=== PATIENT | male | born 1965 | race Caucasian/White ===

== ENCOUNTER 2018-09-30 10:43 | Emergency (ER) | payer OTHER ==
[~2018-09-30] VITALS: Ht 177.8 cm; Wt 106.6 kg
[2018-09-30] MEDS ORDERED: ULTRAM50 MG PO (13:30)
== END 2018-09-30 14:00 | disposition home or self-care (01) ==
LOC: ED 10:43
DX: M54.5 Low back pain (principal); I10 Essential (primary) hypertension; Z88.0 Allergy status to penicillin; Z88.2 Allergy status to sulfonamides
CPT/HCPCS: 81001; 96372; 99283-25; J1885

== ENCOUNTER 2019-09-21 07:46 | Emergency (ER) | payer OTHER ==
[~2019-09-21] VITALS: Ht 177.8 cm; Wt 106.6 kg
[~2019-09-21 07:46] MED LIST: ULTRAM50 MG PO
[2019-09-21] MEDS ORDERED: LISINOPRIL10 MG PO (09:03)
== END 2019-09-21 09:17 | disposition home or self-care (01) ==
LOC: ED 07:46
DX: I10 Essential (primary) hypertension (principal); F22 Delusional disorders; Z88.0 Allergy status to penicillin; Z88.2 Allergy status to sulfonamides
CPT/HCPCS: 99284

== ENCOUNTER 2019-09-25 16:57 | Emergency (ER) | payer OTHER ==
[~2019-09-25] VITALS: Ht 177.8 cm; Wt 114.8 kg
[~2019-09-25 16:57] MED LIST changes: +LISINOPRIL10 MG PO
--- OUTSIDE RECORDS SUMMARY | 2019-09-25 17:00 | XMS ---
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 Care History Behavioral 05/17/2018 [facility] Currently engaging in mental health services with [facility].\T\ nbsp; Please contact [employer] for any mental health concerns. [phone] Medical/Surgical 09/25/[address] [facility] - CHW CALLED AND LEFT PATIENT A VOICEMAIL AGAIN- WITH CONTACT FOR RETURN CALL. 09/24/[address] [facility] - CHW CALLED PATIENT 2X- UNABLE TO CONTACT PATIENT- LEFT A VOICEMAIL- HAS NOT RETURNED CALL. - CHW SENT NO PCP LETTER. E.D. VISIT COUNT (12 MO.) 1 [place] [facility] TOTAL 5 NOTE: Visits indicate total known visits. ED/UCC VISIT TRACKING (12 MO.) 09/25/2019 16:57 [facility] [place] TYPE: Emergency COMPLAINT: - SLEEPLESSNESS 09/24/2019 17:16 [facility] [place] TYPE: Emergency COMPLAINT: - SORE THROAT 09/21/2019 07:46 [facility] [place] TYPE: Emergency COMPLAINT: - WEAKNESS DIAGNOSES: - Allergy status to sulfonamides status - Allergy status to penicillin - Delusional disorders - Essential (primary) hypertension - Weakness 01/22/2019 09:46 [facility] [place] TYPE: Emergency DIAGNOSES: - Med Refill - Essential (primary) hypertension - BP 09/30/2018 10:[address] [facility] [address] [facility] Z[facility] [place] TYPE: Emergency COMPLAINT: - BACK PAIN/NO INJURY DIAGNOSES: - Essential (primary) hypertension - Allergy status to penicillin - Low back pain - Allergy status to sulfonamides status INPATIENT VISIT TRACKING (12 MO.) No inpatient visits to display in this time frame [email or web address]
[2019-09-25] MEDS ORDERED: PRINIVIL10 MG PO (17:20)
== END 2019-09-25 18:20 | disposition home or self-care (01) ==
LOC: ED 16:57
DX: F19.982 Other psychoactive substance use, unspecified with psychoactive substance-induced sleep disorder (principal); I10 Essential (primary) hypertension; Z88.0 Allergy status to penicillin; Z88.2 Allergy status to sulfonamides; Z79.899 Other long term (current) drug therapy
CPT/HCPCS: 99283

== ENCOUNTER 2019-09-26 23:14 | Emergency (ER) | payer OTHER ==
[~2019-09-26] VITALS: Ht 177.8 cm; Wt 114.8 kg
[~2019-09-26 23:14] MED LIST changes: +PRINIVIL10 MG PO
--- OUTSIDE RECORDS SUMMARY | 2019-09-26 23:16 | XMS ---
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 Care History [facility] Currently engaging in mental health services with [employer].\T\ nbsp; Please contact [employer] for any mental health concerns. [phone] Medical/Surgical 09/26/2019 [facility] - CHW CONTACTED PATIENT- DISCUSSED THE NEED FOR ESTABLISHING CARE WITH A PCP. - PATIENT APPROVED FOR CHW TO CONTACT [facility] TO SET UP AN APT- CHW CONTACTED CLINIC AND SET UP A PCP APT FOR Tuesday10/01/2019 @ 12: 45. - CHW PROVIDED PATIENT WITH TRANSPORTATION NUMBER WITH MEDICAID- PATIENT STATED HE WOULD CALL IF TRANSPORTATION SERVICES WAS NEEDED. 09/25/2019 [facility] - CHW CALLED AND LEFT PATIENT A VOICEMAIL AGAIN- WITH CONTACT FOR RETURN CALL. 09/24/2019 [facility] - W CALLED PATIENT 2X- UNABLE TO CONTACT PATIENT- LEFT A VOICEMAIL- HAS NOT RETURNED CALL. - CHW SENT NO PCP LETTER. E.D. VISIT COUNT (12 MO.) 1 [facility] [place] - [place] 5 [facility]. TOTAL 6 NOTE: Visits indicate total known visits. ED/UCC VISIT TRACKING (12 MO.) 09/26/2019 23:14 [facility] [place] TYPE: Emergency COMPLAINT: - KIDNEY PAIN 09/25/2019 16:57 [facility] [place] TYPE: Emergency COMPLAINT: - SLEEPLESSNESS 09/24/2019 17:16 [facility] [place] TYPE: Emergency COMPLAINT: - SORE THROAT 09/21/2019 07:46 [facility] [place] TYPE: Emergency COMPLAINT: - WEAKNESS DIAGNOSES: - Allergy status to sulfonamides status - Allergy status to penicillin - Delusional disorders - Essential (primary) hypertension - Weakness 01/22/2019 09:46 [facility] [place] TYPE: Emergency DIAGNOSES: - Med Refill - Essential (primary) hypertension - BP 09/30/2018 10:44 [facility] [place] TYPE: Emergency COMPLAINT: - BACK PAIN/NO INJURY DIAGNOSES: - Essential (primary) hypertension - Allergy status to penicillin - Low back pain - Allergy status to sulfonamides status INPATIENT VISIT TRACKING (12 MO.) No inpatient visits to display in this time frame [email or web address]
== END 2019-09-27 01:31 | disposition home or self-care (01) ==
LOC: ED 23:14
DX: R10.9 Unspecified abdominal pain (principal); I10 Essential (primary) hypertension; Z88.0 Allergy status to penicillin; Z88.2 Allergy status to sulfonamides; Z79.899 Other long term (current) drug therapy
CPT/HCPCS: 74176; 81001; 99284-25

== ENCOUNTER 2019-09-28 09:36 | Emergency (ER) | payer OTHER ==
[~2019-09-28] VITALS: Ht 177.8 cm; Wt 114.8 kg
--- OUTSIDE RECORDS SUMMARY | 2019-09-28 09:38 | XMS ---
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 Care History [facility] Magui [facility] Currently engaging in mental health services with [facility].\T\ nbsp; Please contact [employer] for any mental health concerns. [phone] Medical/Surgical 09/27/2019 [facility] - W CONTACTED PATIENT- PATIENT REQUESTED INFORMATION FOR APT TO BE TEXTED TO HIS CELLPHONE. - CHW TEXT [phone] WITH APT TIME AND LOCATION AND TRANSPORTATION NUMBER. 09/26/2019 [facility] - W CONTACTED PATIENT- DISCUSSED THE NEED FOR ESTABLISHING CARE WITH A PCP. - PATIENT APPROVED FOR CHW TO CONTACT [facility] TO SET UP AN APT- CHW CONTACTED CLINIC AND SET UP A PCP APT FOR Tuesday10/01/2019 @ 12: 45. - CHW PROVIDED PATIENT WITH TRANSPORTATION NUMBER WITH MEDICAID- PATIENT STATED HE WOULD CALL IF TRANSPORTATION SERVICES WAS NEEDED. 09/25/2019 [facility] - CHW CALLED AND LEFT PATIENT A VOICEMAIL AGAIN- WITH CONTACT FOR RETURN CALL. E.D. VISIT COUNT (12 MO.) 1 [facility] - [place] 6 [facility] TOTAL 7 NOTE: Visits indicate total known visits. ED/UCC VISIT TRACKING (12 MO.) 09/28/2019 09:36 [facility] [place] TYPE: Emergency COMPLAINT: - MEDICAL CLEARANCE 09/26/2019 23:14 [facility] [place] TYPE: Emergency COMPLAINT: - KIDNEY PAIN 09/25/2019 16:57 [facility] [place] TYPE: Emergency COMPLAINT: - SLEEPLESSNESS DIAGNOSES: - Allergy status to sulfonamides status - Ot psychoactive substance use, unsp w sleep disorder - Essential (primary) hypertension - Ot psychoactive substance use, unsp w sleep disorder - Allergy status to penicillin - Other shelter (current) drug therapy 09/24/2019 17:16 [facility] [place] TYPE: Emergency COMPLAINT: - SORE THROAT DIAGNOSES: - Allergy status to sulfonamides status - Cough - Viral infection, unspecified - Essential (primary) hypertension - Allergy status to penicillin 09/21/2019 07:46 [facility] [place] TYPE: Emergency [...] visits to display in this time frame [email or web address]
--- NOTE | 2019-10-04 15:20 | NUR ---
Inidcated to care staff wanted someone to pray with him. Entered room and introduced myself, and inquired as to desire to pray. PT seemed confused and uncertain as to what I was referring to. Asked if Bible needed to be blessed before reading. I replied that I could bless it if he desired, but that it was not necessary. He declined further services or prayer.
== END 2019-10-05 13:00 | disposition home or self-care (01) ==
LOC: ED 09:36
DX: F29 Unspecified psychosis not due to a substance or known physiological condition (principal); I10 Essential (primary) hypertension; Z88.0 Allergy status to penicillin; Z88.2 Allergy status to sulfonamides; Z79.899 Other long term (current) drug therapy
CPT/HCPCS: 80053; 80176; 81001; 84443; 85025; 96360; 96361; 99283-25; 99285-25; G0480; J7030

== ENCOUNTER 2020-01-13 18:06 | Emergency (ER) | payer OTHER ==
[~2020-01-13] VITALS: Ht 177.8 cm; Wt 122.5 kg
--- OUTSIDE RECORDS SUMMARY | ~2020-01-13 | XMS | Encounter Summary ---
Demographics + + + | Address | [address] | | | [place] [address] | + + + | Home Phone | | + + + | Preferred Language | Unknown | + + + | Marital Status | Single | + + + | Christianity Affiliation | 1013 | + + + | Race | Unknown | + + + | Ethnic Group | Unknown | + + + Author + + + | Author | [facility] | | | and [place] | + + + | Organization | [facility] | | | and [place] | + + + | Address | Unknown | + + + | Phone | Unavailable | + + + Support + + +---------+ + | Name | Relationship | Address | Phone | + + +---------+ + | Kady Solre | ECON | Unknown | | + + +---------+ + Care Team Providers + +------+ + | Care Kiln Fireman Name | Role | Phone | + +------+ + PCP | Unavailable | + +------+ + Encounter Details +--------+ + + + + | Date | Type | Department | Care Team | Description | +--------+ + + + + | 01/07/ | Hospital | [facility] | Farrah Galaviz | | | 2011 | Encounter | [facility] | [address] | | | | | [address] | | | | | [place] | [place] [address] | | | | | [address] | [phone] | | | | | [phone] | | | +--------+ + + + + Social History + +-------+ +--------+------+ | Tobacco Use | Types | Packs/Day | Years | Date | | | | | Used | | + +-------+ +--------+------+ | Never Assessed | | | | | + +-------+ +--------+------+ + + + | Sex Assigned at | Date Recorded | | | | + + + | Not on file | | + + + + + + + | Job Start Date | Occupation | Industry | + + + + | Not on file | Not on file | Not on file | + + + + + + + + | Travel History | Travel Start | Travel End | + + + + + + | No recent travel history available. | + + documented as of this encounter Plan of Treatment +--------+---------+ + + + | Date | Type | Specialty | Care Team | Description | +--------+---------+ + + + | 05/29/ | Office | Cardiology | Blanca Keating, | | | 2020 | Visit | | [address] | | | | | | [place], | | | | | | [place] [address] | | | | | | [phone] | | | | | | | | +--------+---------+ + + + documented as of this encounter Visit Diagnoses Not on filedocumented in this encounter"
--- OUTSIDE RECORDS SUMMARY | ~2020-01-13 | XMS | Encounter Summary ---
Demographics + + + | Address | [address] | | | [place] [address] | + + + | Home Phone | | + + + | Preferred Language | Unknown | + + + | Marital Status | Single | + + + | Latter Day Affiliation | 1013 | + + + | Race | Unknown | + + + | Ethnic Group | Unknown | + + + Author + + + | Author | [facility] | | | and [place] | + + + | Organization | [facility] | | | and [place] | + + + | Address | Unknown | + + + | Phone | Unavailable | + + + Support + + +---------+ + | Name | Relationship | Address | Phone | + + +---------+ + | Kady Soler | ECON | Unknown | | + + +---------+ + Care Team Providers + +------+ + | Care Log Deck Tender Name | Role | Phone | + +------+ + | Reyna Iyer PA-C | PCP | | + +------+ + Reason for Visit +--------+ + | Reason | Comments | +--------+ + | Other | | +--------+ + Encounter Details +--------+ + + + + | Date | Type | Department | Care Team | Description | +--------+ + + + + | 12/11/ | Telephone | [facility] | Payton López, | Other | | 2020 | | UROLOGY [address] | RN | | | | | [address] | | | | | | [place], [place] | | | | | | [address] | | | | | | [phone] | | | +--------+ + + + + Social History + +-------+ +--------+------+ | Tobacco Use | Types | Packs/Day | Years | Date | | | | | Used | | + +-------+ +--------+------+ | Never Smoker | | | | | + +-------+ +--------+------+ + +---+---+---+ | Smokeless Tobacco: | | | | | Never Used | | | | + +---+---+---+ + + +---------+ + | Alcohol Use | Drinks/Week | oz/Week | Comments | + + +---------+ + | Not Currently | | | | + + +---------+ + + + + | Sex Assigned at [...] Cardiology | Blanca Keating, | | | 2019 | Visit | | MD Jorge Polk | | | | | | [place], | | | | | | [place] [address] | | | | | | [phone] | | | | | | | | +--------+---------+ + + + documented as of this encounter Visit Diagnoses Not on filedocumented in this encounter"
--- OUTSIDE RECORDS SUMMARY | ~2020-01-13 | XMS | Encounter Summary ---
Demographics + + + | Address | [address] | | | [place] [address] | + + + | Home Phone | | + + + | Preferred Language | Unknown | + + + | Marital Status | Single | + + + | Presybeterian Affiliation | 1013 | + + + | Race | Unknown | + + + | Ethnic Group | Unknown | + + + Author + + + | Author | [facility] | | | and [place] | + + + | Organization | [facility] | | | and [...] Team Providers + +------+ + | Care [employer] Worker Name | Role | Phone | + +------+ + | Reyna Iyer PA-C | PCP | | + +------+ + Encounter Details +--------+ + + + + | Date | Type | Department | Care Team | Description | +--------+ + + + + | 11/22/ | Abstract | [facility] | Provider, | Depression with | | 2019 | | CARDIOLOGY [address] | anxiety; | | | | [place], | [address] | Hypertension, | | | | [place] [address] | [place] [address] | essential; Mixed | | | | [phone] | | hyperlipidemia; | | | | | | Schizophrenia, | | | | | | unspecified type | | | | | | (HCC); Psoriasis; | | | | | | Abnormal | | | | | | electrocardiogram | +--------+ + + + + Social [...] | | | + +---+---+---+ + + + | Sex Assigned at [...] | +--------+---------+ + + + | 05/29/ Office | Cardiology | Blanca Keating, | | | 2019 | Visit | | [address] | | | | | | [place], | | | | | | [place] [address] | | | | | | [phone] | | | | | | | | +--------+---------+ + + + documented as of this encounter Procedures + +--------+ + + + | Procedure Name | Priori | Date/Time | Associated Diagnosis | Comments | | | ty | | | | + +--------+ + + + | EXTERNAL LAB: OPAL | Routin | 11/01/2019 | | Results for this | | | e | | | procedure are in the | | | | | | results section. | + +--------+ + + + | EXTERNAL LAB: | Routin | 11/01/2019 | | Results for this | | GLUCOSE | e | | | procedure are in the | | | | | | results section. | + +--------+ + + + | EXTERNAL LAB: PSA | Routin | 11/01/2019 | | Results for this | | | e | | | procedure are in the | | | | | | results section. | + +--------+ + + + | EXTERNAL LAB: ALT | Routin | 11/01/2019 | | Results for this | | | e | | | procedure are in the | | | | | | results section. | + +--------+ + + + | EXTERNAL LAB: AST | Routin | 11/01/2019 | | Results for this | | | e | | | procedure are in the | | | | | | results section. | + +--------+ + + + | EXTERNAL LAB: | Routin | 11/01/2019 | | Results for this | | ALKALINE PHOSPHATASE | e | | | procedure are in the | | | | | | results section. | + +--------+ + + + | EXTERNAL LAB: | Routin | 11/01/2019 | | Results for this | | BILIRUBIN, TOTAL | e | | | procedure are in the | | | | | | results section. | + +--------+ + + + | EXTERNAL LAB: | Routin | 11/01/2019 | | Results for this | | ALBUMIN | e | | | procedure are in the | | | | | | results section. | + +--------+ + + + | EXTERNAL LAB: | Routin | 11/01/2019 | | Results for this | | PROTEIN, TOTAL | e | | | procedure are in the | | | | | | results section. | + +--------+ + + + | EXTERNAL LAB: | Routin | 11/01/2019 | | Results for this | | CALCIUM | e | | | procedure are in the | | | | | | results section. | + +--------+ + + + | EXTERNAL LAB: CARBON | Routin | 11/01/2019 | | Results for this | | DIOXIDE | e | | | procedure are in the | | | | | | results section. | + +--------+ + + + | EXTERNAL LAB: | Routin | 11/01/2019 | | Results for this | | CHLORIDE | e | | | procedure are in the | | | | | | results section. | + +--------+ + + + | EXTERNAL LAB: | Routin | 11/01/2019 | | Results for this | | POTASSIUM | e | | | procedure are in the | | | | | | results section. | + +--------+ + + + | EXTERNAL LAB: SODIUM | Routin | 11/01/2019 | | Results for this | | | e | | | procedure are in the | | | | | | results section. | + +--------+ + + + | EXTERNAL LAB: CBC | Routin | 11/01/2019 | | Results for this | | | e | | | procedure are in the | | | | | | results section. | + +--------+ + + + | EXTERNAL LAB: TSH | Routin | 11/01/2019 | | Results for this | | | e | | | procedure are in the | | | | | | results section. | + +--------+ + + + | EXTERNAL LAB: | Routin | 11/01/2019 | | Results for this | | TRIGLYCERIDES | e | | | procedure are in the | | | | | | results section. | + +--------+ + + + | EXTERNAL LAB: | Routin | 11/01/2019 | | Results for this | | CHOLESTEROL, HDL | e | | | procedure are in the | | | | | | results section. | + +--------+ + + + | EXTERNAL LAB: | Routin | 11/01/2019 | | Results for this | | CHOLESTEROL, TOTAL | e | | | procedure are in the | | | | | | results section. | + +--------+ + + + | EXTERNAL LAB: | Routin | 11/01/2019 | | Results for this | | CHOLESTEROL, LDL | e | | | procedure are in the | | | | | | results section. | + +--------+ + + + | EXTERNAL LAB: EGFR | Routin | 11/01/2019 | | Results for this | | | e | | | procedure are in the | | | | | | results section. | + +--------+ + + + | EXTERNAL LAB: | Routin | 11/01/2019 | | Results for this | | CREATININE | e | | | procedure are in the | | | | | | results section. | + +--------+ + + + | HEMOGLOBIN A1C | Routin | 11/01/2019 | | Results for this | | | e | | | procedure are in the | | | | | | results section. | + +--------+ + + + documented in this encounter Results Hemoglobin A1C (11/01/2019) + +-------+ + + + | Component | Value | Ref Range | Performed | Pathologist | | | | | At | Signature | + +-------+ + + + | Hemoglobin | 5.9 | % | EXTERNAL | | | A1c | | | LAB | | + +-------+ + + + + + | Specimen | + + | Blood | + + + + | Resulting Agency Comment | + + | [facility] | + + + +---------+ + + | Performing | Address | City/State/Zipcode | Phone Number | | Organization | | | | + +---------+ + + | EXTERNAL LAB | | | | + +---------+ + + External Lab: OPAL (11/01/2019) + +-------+ + + + | Component | Value | Ref Range | Performed | Pathologist | | | | | At | Signature | + +-------+ + + + | BUN, | 22 | 6 - 23 | EXTERNAL | | | External | | | LAB | | + +-------+ + + + + + | Resulting Agency Comment | + + | [facility] | + + + +---------+ + + | Performing | Address | City/State/Zipcode | Phone Number | | Organization | | | | + +---------+ + + | EXTERNAL LAB | | | | + +---------+ + + External Lab: Glucose (11/01/2019) + +---------+ + + + | Component | Value | Ref Range | Performed | Pathologist | | | | | At | Signature | + +---------+ + + + | Glucose, | 120 (A) | 70 - 100 | EXTERNAL | | | External | | | LAB | | + +---------+ + + + + + | Resulting Agency Comment | + + | [facility] | + + + +---------+ + + | Performing | Address | City/State/Zipcode | Phone Number | | Organization | | | | + +---------+ + + | EXTERNAL LAB | | | | + +---------+ + + External Lab: PSA (11/01/2019) + + + + + + | Component | Value | Ref Range | Performed | Pathologist | | | | | At | Signature | + + + + + + | PSA, | 16.08 (A)Comment: | 0 - 4 | EXTERNAL | | | External | ULTRA/REFELX | | LAB | | + + + + + + + + | Resulting Agency Comment | + + | [facility] | + + + +---------+ + + | Performing | Address | City/State/Zipcode | Phone Number | | Organization | | | | + +---------+ + + | EXTERNAL LAB | | | | + +---------+ + + External Lab: ALT (11/01/2019) + +-------+ + + + | Component | Value | Ref Range | Performed | Pathologist | | | | | At | Signature | + +-------+ + + + | ALT, | 16 | 7 - 52 | EXTERNAL | | | External | | | LAB | | + +-------+ + + + + + | Resulting Agency Comment | + + | [facility] | + + + +---------+ + + | Performing | Address | City/State/Zipcode | Phone Number | | Organization | | | | + +---------+ + + | EXTERNAL LAB | | | | + +---------+ + + External Lab: ERMA (11/01/2019) + +--------+ + + + | Component | Value | Ref Range | Performed | Pathologist | | | | | At | Signature | + +--------+ + + + | AST, | 12 (A) | 13 - 39 | EXTERNAL | | | External | | | LAB | | + +--------+ + + + + + | Resulting Agency Comment | + + | [facility] | + + + +---------+ + + | Performing | Address | City/State/Zipcode | Phone Number | | Organization | | | | + +---------+ + + | EXTERNAL LAB | | | | + +---------+ + + External Lab: Alkaline Phosphatase (11/01/2019) + +-------+ + + + | Component | Value | Ref Range | Performed | Pathologist | | | | | At | Signature | + +-------+ + + + | ALP, | 63 | 31 - 120 | EXTERNAL | | | External | | | LAB | | + +-------+ + + + + + | Resulting Agency Comment | + + | [facility] | + + + +---------+ + + | Performing | Address | City/State/Zipcode | Phone Number | | Organization | | | | + +---------+ + + | EXTERNAL LAB | | | | + +---------+ + + External Lab: Bilirubin, Total (11/01/2019) + +-------+ + + + | Component | Value | Ref Range | Performed | Pathologist | | | | | At | Signature | + +-------+ + + + | Bilirubin, | 0.4 | 1.2 | EXTERNAL | | | Total, | | | LAB | | | External | | | | | + +-------+ + + + + + | Resulting Agency Comment | + + | [facility] | + + + +---------+ + + | Performing | Address | City/State/Zipcode | Phone Number | | Organization | | | | + +---------+ + + | EXTERNAL LAB | | | | + +---------+ + + External Lab: Albumin (11/01/2019) + +-------+ + + + | Component | Value | Ref Range | Performed | Pathologist | | | | | At | Signature | + +-------+ + + + | Albumin, | 4.2 | 3.5 - 5 | EXTERNAL | | | External | | | LAB | | + +-------+ + + + + + | Resulting Agency Comment | + + | [facility] | + + + +---------+ + + | Performing | Address | City/State/Zipcode | Phone Number | | Organization | | | | + +---------+ + + | EXTERNAL LAB | | | | + +---------+ + + External Lab: Protein, Total (11/01/2019) + +-------+ + + + | Component | Value | Ref Range | Performed | Pathologist | | | | | At | Signature | + +-------+ + + + | Protein, | 7 | 6 - 8.3 | EXTERNAL | | | Total, | | | LAB | | | External | | | | | + +-------+ + + + + + | Resulting Agency Comment | + + | [facility] | + + + +---------+ + + | Performing | Address | City/State/Zipcode | Phone Number | | Organization | | | | + +---------+ + + | EXTERNAL LAB | | | | + +---------+ + + External Lab: Calcium (11/01/2019) + +-------+ + + + | Component | Value | Ref Range | Performed | Pathologist | | | | | At | Signature | + +-------+ + + + | Calcium, | 9.8 | 8.5 - 10.3 | EXTERNAL | | | External | | | LAB | | + +-------+ + + + + + | Resulting Agency Comment | + + | [facility] | + + + +---------+ + + | Performing | Address | City/State/Zipcode | Phone Number | | Organization | | | | + +---------+ + + | EXTERNAL LAB | | | | + +---------+ + + External Lab: Carbon Dioxide (11/01/2019) + +-------+ + + + | Component | Value | Ref Range | Performed | Pathologist | | | | | At | Signature | + +-------+ + + + | Carbon | 24 | 19 - 31 | EXTERNAL | | | Dioxide, | | | LAB | | | External | | | | | + +-------+ + + + + + | Resulting Agency Comment | + + | [facility] | + + + +---------+ + + | Performing | Address | City/State/Zipcode | Phone Number | | Organization | | | | + +---------+ + + | EXTERNAL LAB | | | | + +---------+ + + External Lab: Chloride (11/01/2019) + +-------+ + + + | Component | Value | Ref Range | Performed | Pathologist | | | | | At | Signature | + +-------+ + + + | Chloride, | 104 | 95 - 112 | EXTERNAL | | | External | | | LAB | | + +-------+ + + + + + | Resulting Agency Comment | + + | [facility] | + + + +---------+ + + | Performing | Address | City/State/Zipcode | Phone Number | | Organization | | | | + +---------+ + + | EXTERNAL LAB | | | | + +---------+ + + External Lab: Potassium (11/01/2019) + +-------+ + + + | Component | Value | Ref Range | Performed | Pathologist | | | | | At | Signature | + +-------+ + + + | Potassium, | 4.7 | 3.6 - 5.1 | EXTERNAL | | | External | | | LAB | | + +-------+ + + + + + | Resulting Agency Comment | + + | [facility] | + + + +---------+ + + | Performing | Address | City/State/Zipcode | Phone Number | | Organization | | | | + +---------+ + + | EXTERNAL LAB | | | | + +---------+ + + External Lab: Sodium (11/01/2019) + +-------+ + + + | Component | Value | Ref Range | Performed | Pathologist | | | | | At | Signature | + +-------+ + + + | Sodium, | 141 | 132 - 143 | EXTERNAL | | | External | | | LAB | | + +-------+ + + + + + | Resulting Agency Comment | + + | [facility] | + + + +---------+ + + | Performing | Address | City/State/Zipcode | Phone Number | | Organization | | | | + +---------+ + + | EXTERNAL LAB | | | | + +---------+ + + External Lab: CBC (11/01/2019) + +-------+ + + + | Component | Value | Ref Range | Performed | Pathologist | | | | | At | Signature | + +-------+ + + + | WBC, | 9 | 4.5 - 11 | EXTERNAL | | | External | | | LAB | | + +-------+ + + + | HGB, | 14.6 | 13.5 - 18 | EXTERNAL | | | External | | | LAB | | + +-------+ + + + | HCT, | 43.5 | 41 - 50 | EXTERNAL | | | External | | | LAB | | + +-------+ + + + | PLT, | 258 | 140 - 440 | EXTERNAL | | | External | | | LAB | | + +-------+ + + + | Neutrophils | 60.1 | 39 - 80 | EXTERNAL | | | %, | | | LAB | | | External | | | | | + +-------+ + + + | Lymphocytes | 29.4 | 24 - 44 | EXTERNAL | | | %, | | | LAB | | | External | | | | | + +-------+ + + + | Monocytes | 6.4 | 0 - 12 | EXTERNAL | | | %, External | | | LAB | | + +-------+ + + + | Eosinophils | 3.5 | 0 - 6 | EXTERNAL | | | %, | | | LAB | | | External | | | | | + +-------+ + + + | RBC, | 4.93 | 4.3 - 5.7 | EXTERNAL | | | External | | | LAB | | + +-------+ + + + | MCV, | 88 | 81 - 99 | EXTERNAL | | | External | | | LAB | | + +-------+ + + + | RDW, | 14.9 | 10.5 - 15 | EXTERNAL | | | External | | | LAB | | + +-------+ + + + + + | Resulting Agency Comment | + + | [facility] | + + + +---------+ + + | Performing | Address | City/State/Zipcode | Phone Number | | Organization | | | | + +---------+ + + | EXTERNAL LAB | | | | + +---------+ + + External Lab: TSH (11/01/2019) + + + + + + | Component | Value | Ref Range | Performed | Pathologist | | | | | At | Signature | + + + + + + | TSH, | 2.32Comment: 3rd GEN | 0.27 - 4.2 | EXTERNAL | | | External | | | LAB | | + + + + + + + + | Specimen | + + | Blood | + + + + | Resulting Agency Comment | + + | [facility] | + + + +---------+ + + | Performing | Address | City/State/Zipcode | Phone Number | | Organization | | | | + +---------+ + + | EXTERNAL LAB | | | | + +---------+ + + External Lab: Triglycerides (11/01/2019) + +-------+ + + + | Component | Value | Ref Range | Performed | Pathologist | | | | | At | Signature | + +-------+ + + + | Triglycerid | 142 | 30 - 150 | EXTERNAL | | | es, | | | LAB | | | External | | | | | + +-------+ + + + + + | Specimen | + + | Blood | + + + + | Resulting Agency Comment | + + | [facility] | + + + +---------+ + + | Performing | Address | City/State/Zipcode | Phone Number | | Organization | | | | + +---------+ + + | EXTERNAL LAB | | | | + +---------+ + + External Lab: Cholesterol, HDL (11/01/2019) + +--------+ + + + | Component | Value | Ref Range | Performed | Pathologist | | | | | At | Signature | + +--------+ + + + | HDL | 37 (A) | 40 mg/dl | EXTERNAL | | | Cholesterol | | | LAB | | | , External | | | | | + +--------+ + + + + + | Specimen | + + | Blood | + + + + | Resulting Agency Comment | + + | [facility] | + + + +---------+ + + | Performing | Address | City/State/Zipcode | Phone Number | | Organization | | | | + +---------+ + + | EXTERNAL LAB | | | | + +---------+ + + External Lab: Cholesterol, Total (11/01/2019) + +-------+ + + + | Component | Value | Ref Range | Performed | Pathologist | | | | | At | Signature | + +-------+ + + + | Cholesterol | 187 | 200 mg/dl | EXTERNAL | | | , Total, | | | LAB | | | External | | | | | + +-------+ + + + + + | Specimen | + + | Blood | + + + + | Resulting Agency Comment | + + | [facility] | + + + +---------+ + + | Performing | Address | City/State/Zipcode | Phone Number | | Organization | | | | + +---------+ + + | EXTERNAL LAB | | | | + +---------+ + + External Lab: Cholesterol, LDL (11/01/2019) + +---------+ + + + | Component | Value | Ref Range | Performed | Pathologist | | | | | At | Signature | + +---------+ + + + | LDL | 122 (A) | 100 | EXTERNAL | | | Cholesterol | | | LAB | | | , Direct, | | | | | | External | | | | | + +---------+ + + + + + | Specimen | + + | Blood | + + + + | Resulting Agency Comment | + + | [facility] | + + + +---------+ + + | Performing | Address | City/State/Zipcode | Phone Number | | Organization | | | | + +---------+ + + | EXTERNAL LAB | | | | + +---------+ + + External Lab: eGFR (11/01/2019) + +-------+ + + + | Component | Value | Ref Range | Performed | Pathologist | | | | | At | Signature | + +-------+ + + + | eGFR, | 69 | | EXTERNAL | | | External | | | LAB | | + +-------+ + + + + + | Specimen | + + | Blood | + + + + | Resulting Agency Comment | + + | [facility] | + + + +---------+ + + | Performing | Address | City/State/Zipcode | Phone Number | | Organization | | | | + +---------+ + + | EXTERNAL LAB | | | | + +---------+ + + External Lab: Creatinine (11/01/2019) + +-------+ + + + | Component | Value | Ref Range | Performed | Pathologist | | | | | At | Signature | + +-------+ + + + | Creatinine, | 1.11 | 0.7 - 1.33 | EXTERNAL | | | External | | | LAB | | + +-------+ + + + + + | Specimen | + + | Blood | + + + + | Resulting Agency Comment | + + | [facility] | + + + +---------+ + + | Performing | Address | City/State/Zipcode | Phone Number | | Organization | | | | + +---------+ + + | EXTERNAL LAB | | | | + +---------+ + + documented in this encounter Visit Diagnoses + + | Diagnosis | + + | Depression with anxiety Dysthymic disorder | + + | Hypertension, essential Unspecified essential hypertension | + + | Mixed hyperlipidemia | + + | Schizophrenia, unspecified type (HCC) | + + | Psoriasis Other psoriasis | + + | Abnormal electrocardiogram Nonspecific abnormal electrocardiogram (ECG) (EKG) | + + documented in this encounter"
--- OUTSIDE RECORDS SUMMARY | ~2020-01-13 | XMS | Encounter Summary ---
Demographics + + + | Address | [address] | | | [place] [address] | + + + | Home Phone | | + + + | Preferred Language | Unknown | + + + | Marital Status | Single | + + + | Zoroastrianism Affiliation | 1013 | + + + | Race | Unknown | + + + | Ethnic Group | Unknown | + + + Author + + + | Author | [facility] | | | and [place] | + + + | Organization | [facility] | | | and [...] Team Providers + +------+ + | Care Car Hopper Name | Role | Phone | + +------+ + PCP | Unavailable | + +------+ + Encounter Details +--------+ + + + + | Date | Type | Department | Care Team | Description | +--------+ + + + + | 06/12/ | [facility] | [facility] | Parth Gonzales MD | | | 1995 | Encounter | MED CTR GENERIC OP | [address] | | | | | CONV DEPT [address] | [address] [place] | | | | | [address], | [address] | | | | | [place] [address] | | | | | | [phone] | | | +--------+ + + + [...] 2020 | Visit | | [address] | | | | | | [place], | | | | | | [place] [address] | | | | | | [phone] | | | | | | | | +--------+---------+ + + + documented as of this encounter Visit Diagnoses Not on filedocumented in this encounter"
--- OUTSIDE RECORDS SUMMARY | ~2020-01-13 | XMS | Clinical Summary ---
Demographics + + + | Address | [address] | | | [place] [address] | + + + | Home Phone | | + + + | Preferred Language | Unknown | + + + | Marital Status | Single | + + + | Buddhist Affiliation | 1013 | + + + | Race | Unknown | + + + | Ethnic Group | Unknown | + + + Author + + + | Author | [facility] | | | and [place] | + + + | Organization | [facility] | | | and [...] Team Providers + +------+ + | Care Advice Clerk Name | Role | Phone | + +------+ + | Reyna Iyer PA-C | PCP | | + +------+ + Allergies + + + + + + | Active Allergy | Reactions | Severity | Noted | Comments | | | | | Date | | + + + + + + | Penicillins | Rash | Low | 05/20/20 | | | | | | 19 | | + + + + + + | Sulfa Antibiotics | Hives | | 11/23/19 | | | | | | 20 | | + + + + + + Medications + + + +---------+------+------+-------+ | Medication | Sig | Dispensed | Refills | Star | End | Statu | | | | | | t | Date | s | | | | | | Date | | | + + + +---------+------+------+-------+ | triamcinolone | | | 0 | 02/2 | | Activ | | (KENALOG) 0.1% cream | | | | 03/24 | | e | | | | | | 20 | | | + + + +---------+------+------+-------+ | risperiDONE | Take 2 mg by mouth 2 | | 0 | | | Activ | | (RISPERDAL) 2 MG | times daily. | | | | | e | | tablet | | | | | | | + + + +---------+------+------+-------+ | paliperidone | Inject 156 mg into | | 0 | | | Activ | | palmitate (INVEGA | the muscle Every 30 | | | | | e | | SUSTENNA) 156 mg/mL | days. | | | | | | | IM syringe | | | | | | | + + + +---------+------+------+-------+ | metoprolol | Take 1 tablet by | 30 | 5 | 03/2 | | Activ | | succinate | mouth Daily. | tablet | | 3/20 | | e | | (TOPROL-XL) 25 mg 24 | | | | 20 | | | | hr tablet | | | | | | | + + + +---------+------+------+-------+ Active Problems + + + | Problem | Noted Date | + + + | Depression with anxiety | | + + + | Hypertension, essential | | + + + | Mixed hyperlipidemia | | + + + | Schizophrenia | | + + + | Psoriasis | | + + + | Abnormal electrocardiogram | | + + + + + | Overview: Echocardiogram 11/06/2019 shows normal left | | ventricular cavity wall with overall normal systolic function EF | | 55%, normal right ventricular size and function, no significant | | valvular abnormalities, no evidence of any pericardial effusion. | | Edgardo Phan MD.Holter monitor 11/06/2019-11/10/2019 shows a | | total of 289,818 beats recorded, patient was predominantly sinus | | rhythm, average heart rate 101 beats per minute, minimum heart | | rate of 79 beats per minute and maximum heart rate 126 beats per | | minute, arrhythmia was noted as frequent premature atrial | | contractions, rare premature ventricular contractions, short | | paroxysmal episodes of SVT, however the longest was only 22 | | beats. Edgardo Phan MD | + + Encounters +--------+ + + + + | Date | Type | Specialty | Care Team | Description | +--------+ + + + + | 12/11/ | Telephone | Urology | Payton López, | Other | | 2020 | | | RN | | +--------+ + + + + | 11/25/ | Office | Cardiology | Lauro Kwan, | Abnormal | | 2019 | Visit | | MD | electrocardiogram | | | | | | (Primary Dx); | | | | | | Hypertension, | | | | | | essential; Sleep | | | | | | apnea, unspecified | | | | | | type | +--------+ + + + + | 11/22/ | Abstract | Cardiology | Provider, | Depression with | | 2019 | | | MD Shima | anxiety; | | | | | | Hypertension, | | | | | | essential; Mixed | | | | | | hyperlipidemia; | | | | | | Schizophrenia, | | | | | | unspecified type | | | | | | (FORMERLY [facility]); Psoriasis; | | | | | | Abnormal | | | | | | electrocardiogram | +--------+ + + + + | 11/15/ | Office | Urology | Keri Knox | Elevated PSA | | 2019 | Visit | | MD Kanchan | (Primary Dx); | | | | | | Dysuria | +--------+ + + + + | 11/12/ | Telephone | Urology | Luis M Hawk, | Referral | | 2019 | | | DO | | +--------+ + + + + from Last 3 Months Immunizations + + + + | Name | Administration Dates | Next Due | + + + + | INFLUENZA QUADR | 10/02/2016 | | | W/PRES | | | | (PED/ADOL/ADULT) | | | | MULTIDOSE | | | + + + + Family History + + +------+ + | Medical History | Relation | Name | Comments | + + +------+ + | Heart disease | Father | | | + + +------+ + | Hypertension | Father | | | + + +------+ + | Alzheimer's disease | Maternal | | | | | Grandfath | | | | | er | | | + + +------+ + | Diabetes | Maternal | | | | | Grandmoth | | | | | er | | | + + +------+ + | Heart disease | Maternal | | | | | Grandmoth | | | | | er | | | + + +------+ + | Hypertension | Maternal | | | | | Grandmoth | | | | | er | | | + + +------+ + | Diabetes | Mother | | | + + +------+ + | Hypertension | Mother | | | + + +------+ + | Diabetes | Paternal | | | | | Grandmoth | | | | | er | | | + + +------+ + | Hypertension | Paternal | | | | | Grandmoth | | | | | er | | | + + +------+ + | Cancer | Sister | | throat | + + +------+ + | Hypertension | Sister | | | + + +------+ + + +------+--------+ + | Relation | Name | Status | Comments | + +------+--------+ + | Father | | | | + +------+--------+ + | Maternal Grandfather | | | | + +------+--------+ + | Maternal Grandmother | | | | + +------+--------+ + | Mother | | | | + +------+--------+ + | Paternal Grandmother | | | | + +------+--------+ + | Sister | | | | + +------+--------+ + | Sister | | | | + +------+--------+ + Social History + +-------+ +--------+------+ | [...] recent travel history available. | + + Last Filed Vital Signs + + + + + | Vital Sign | Reading | Time Taken | Comments | + + + + + | Blood Pressure | 130/82 | 11/26/2019 9:43 AM | | | | | PDT | | + + + + + | Pulse | 102 | 11/26/2019 9:43 AM | | | | | PDT | | + + + + + | Temperature | - | - | | + + + + + | Respiratory Rate | 22 | 11/26/2019 9:43 AM | | | | | PDT | | + + + + + | Oxygen Saturation | 95% | 11/16/2019 11:08 AM | | | | | PDT | | + + + + + | Inhaled Oxygen | - | - | | | Concentration | | | | + + + + + | Weight | 120.2 kg (264 lb | 11/26/2019 9:43 AM | | | | 15.9 oz) | PDT | | + + + + + | Height | 175.3 cm (5' 9") | 11/26/2019 9:43 AM | | | | | PDT | | + + + + + | Body Mass Index | 39.13 | 11/26/2019 9:43 AM | | | | | PDT | | + + + + + Plan of Treatment +--------+---------+ + + + | Date | Type | Specialty | Care Team | Description | +--------+---------+ + + + | 05/29/ | Office | Cardiology | Lauro Kwan, | | | 2019 | Visit | | [address] [facility] | | | | | | [place], | | | | | | [place] [address] | | | | | | [phone] | | | | | | | | +--------+---------+ + + + + + + + + | Health Maintenance | Due Date | Last Done | Comments | + + + + + | Hepatitis C | | | | | Screening | 5 | | | + + + + + | Vaccine: | | | | | Dtap/Tdap/Td (1 - | 6 | | | | Tdap) | | | | + + + + + | Colorectal Cancer | | | | | Screening | 5 | | | | (Colonoscopy) | | | | + + + + + | Vaccine: Zoster (1 | | | | | of 2) | 5 | | | + + + + + | Vaccine: Influenza | | 10/02/2016 | | | (Season Ended) | 0 | | | + + + + + Procedures + +--------+ + + + | Procedure Name | Priori | Date/Time | Associated Diagnosis | Comments | | | ty | | | | + +--------+ + + + | ECG 12 LEAD | Routin | 11/26/2019 | Abnormal | Results for this | | | e | 9:47 AM | electrocardiogram | procedure are in the | | | | PDT | Hypertension, | results section. | | | | | essential | | + +--------+ + + + | URINALYSIS WITH | Routin | 11/16/2019 | Dysuria | Results for this | | MICROSCOPIC WITH | e | 12:08 PM | | procedure are in the | | CULTURE IF INDICATED | | PDT | | results section. | + +--------+ + + + | PSA, TOTAL AND FREE | Routin | 11/16/2019 | Elevated PSA | Results for this | | | e | 12:03 PM | | procedure are in the | | | | PDT | | results section. | + +--------+ + + + | ECHO-EXTERNAL SCAN | | 11/06/2019 | | Results for this | | | | 12:00 AM | | procedure are in the | | | | PST | | results section. | + +--------+ + + + | LABS - EXTERNAL SCAN | | 11/01/2019 | | Results for this | | | | 12:00 AM | | procedure are in the | | | | PST | | results section. | + +--------+ + + + | HEMOGLOBIN A1C | Routin | 11/01/2019 | | Results for this | | | e | | | procedure are in the | | | | | | results section. | + +--------+ + + + | EXTERNAL LAB: BUN | Routin | 11/01/2019 | | Results [...] +--------+ + + + | EXTERNAL LAB: DBEBIE | Routin | 11/01/2019 | | Results for this | | | e | | | procedure are in the | | | | | | results section. | + +--------+ + + + | EXTERNAL LAB: DAKSHA | Routin | 11/01/2019 | | Results for this | | | e | | | procedure are in the | | | | | | results section. | + +--------+ + + + | EXTERNAL LAB: AHNS | Routin | 11/01/2019 | | Results [...] section. | + +--------+ + + + from Last 3 Months Results ECG 12 lead (11/26/2019 9:47 AM PDT) + + + + + + | Component | Value | Ref Range | Performed | Pathologist | | | | | At | Signature | + + + + + + | VENTRICULAR | 102 | BPM | [facility] | | | RATE EKG | | | | | + + + + + + | ATRIAL RATE | 144 | BPM | [facility] | | + + + + + + | QRS | 94 | ms | [facility] | | | DURATION | | | | | + + + + + + | Q-T | 382 | ms | [facility] | | | INTERVAL | | | | | + + + + + + | Q-T | 497 | ms | [facility] | | | INTERVAL | | | | | | (CORRECTED) | | | | | + + + + + + | P WAVE AXIS | 26 | degrees | [facility] | | + + + + + + | QRS AXIS | 11 | degrees | [facility] | | + + + + + + | T AXIS | 38 | degrees | [facility] | | + + + + + + | INTERPRETAT | Sinus tachycardia | | [facility] | | | ION TEXT | with occasional | | | | | | PAC'sAbnormal ECGNo | | | | | | previous ECGs | | | | | | availableConfirmed by | | | | | | LAURO KWAN MD | | | | | | ([id number]) on 11/27/2019 | | | | | | 12:26:28 PM | | | | + + + + + + + + | Specimen | + + | | + + + + + | Narrative | Performed At | + + + | | | + + + + +---------+ + + | Performing | Address | City/State/Zipcode | Phone Number | | Organization | | | | + +---------+ + + | [facility] | | | | + +---------+ + + Urinalysis with Microscopic with Culture if Indicated (11/16/2019 12:08 PM PDT) + + + + + + | Component | Value | Ref Range | Performed | Pathologist | | | | | At | Signature | + + + + + + | Color, UA | YELLOW | | REFERENCE | | | | | | LAB | | | | | | [facility] | | | | | | LABORATORY | | + + + + + + | Clarity, UA | CLEAR | | REFERENCE | | | | | | LAB | | | | | | [facility] | | | | | | LABORATORY | | + + + + + + | Specific | 1.015 | 1.002 - 1.030 | REFERENCE | | | [place], | | | LAB | | | Urine | | | [facility] | | | | | | LABORATORY | | + + + + + + | Leukocyte | NEGATIVE | NEG | REFERENCE | | | esterase, | | | LAB | | | UA | | | [facility] | | | | | | LABORATORY | | + + + + + + | Nitrite, UA | NEGATIVE | NEG | REFERENCE | | | | | | LAB | | | | | | [facility] | | | | | | LABORATORY | | + + + + + + | Urobilinoge | <1.6 | <1.6 mg/dL | REFERENCE | | | n, Ur | | | LAB | | | | | | [facility] | | | | | | LABORATORY | | + + + + + + | Protein, | NEGATIVE | NEG mg/dL | REFERENCE | | | Urine | | | LAB | | | (mg/dL) | | | [facility] | | | | | | LABORATORY | | + + + + + + | pH, Urine | 5.0 | 5.0 - 8.0 | REFERENCE | | | | | | LAB | | | | | | [facility] | | | | | | LABORATORY | | + + + + + + | Blood, UA | NEGATIVE | NEG | REFERENCE | | | | | | LAB | | | | | | [facility] | | | | | | LABORATORY | | + + + + + + | Ketones, UA | NEGATIVE | NEG mg/dL | REFERENCE | | | | | | LAB | | | | | | [facility] | | | | | | LABORATORY | | + + + + + + | Bilirubin, | NEGATIVE | NEG | REFERENCE | | | UA | | | LAB | | | | | | [facility] | | | | | | LABORATORY | | + + + + + + | Glucose, Ur | NEGATIVE | NEG mg/dL | REFERENCE | | | | | | LAB | | | | | | [facility] | | | | | | LABORATORY | | + + + + + + | WBC UA | 0-2 | 0 - 5 /hpf | REFERENCE | | | | | | LAB | | | | | | [facility] | | | | | | LABORATORY | | + + + + + + | Red Blood | NONE SEEN | 0 - 2 /hpf | REFERENCE | | | Cells, | | | LAB | | | Urine | | | [facility] | | | | | | LABORATORY | | + + + + + + | Squamous | NONE SEEN | /lpf | REFERENCE | | | Epithelial | | | LAB | | | Cells, | | | [facility] | | | Urine | | | LABORATORY | | + + + + + + | Bacteria, | NONE SEEN | NONE | REFERENCE | | | Urine | | | LAB | | | | | | [facility] | | | | | | LABORATORY | | + + + + + + | Mucus, | 1+Comment: Testing | | REFERENCE | | | Urine | performed at [facility];[address] | | LAB | | | | [place] | | [facility] | | | | [address];[place] [address] | | LABORATORY | | + + + + + + + + | Specimen | + + | Urine - Urine | | specimen obtained by | | clean catch | | procedure (specimen) | + + + + + + + | Performing | Address | City/State/Zipcode | Phone Number | | Organization | | | | + + + + + | REFERENCE LAB | [address] [place] [address] | [place], [place] | [phone] | | [facility] | Blvd. | [address] | | | LABORATORY | | | | + + + + + | REFERENCE LAB | [address] [place] [address] | [place], [place] | | | [facility] | Blvd. | [address] | | | LABORATORY | | | | + + + + + PSA, Total and Free (11/16/2019 12:03 PM PDT) + + + + + + | Component | Value | Ref Range | Performed | Pathologist | | | | | At | Signature | + + + + + + | PROSTATE | 17.60 (H) | 0.00 - 4.00 | REFERENCE | | | SPECIFIC AG | | ng/mL | LAB | | | | | | [facility] | | | | | | LABORATORY | | + + + + + + | PSA, Free | 1.26 | ng/mL | REFERENCE | | | | | | LAB | | | | | | [facility] | | | | | | LABORATORY | | + + + + + + | PSA, | 7.2Comment: Free PSA | % | REFERENCE | | | Free/Total | >20% suggests benign | | LAB | | | ratio | condition.Free PSA | | [facility] | | | | between 10% and 20% show | | LABORATORY | | | | substantial overlap in | | | | | | benign and | | | | | | malignantconditions.Free | | | | | | PSA <10% suggests | | | | | | carcinoma. The percent | | | | | | Free PSA is most | | | | | | clinicallyuseful in the | | | | | | total PSA range of 4 to | | | | | | 10 ng/mL.Testing | | | | | | performed at [facility];[address] | | | | | | [facility] | | | | | | Blvd;[place] [address] | | | | | | | | | | + + + + + + + + | Specimen | + + | Blood | + + + + + + + | Performing | Address | City/State/Zipcode | Phone Number | | Organization | | | | + + + + + | REFERENCE LAB | [address] | [place] | [phone] | | [facility] | Blvd. | [address] | | | LABORATORY | | | | + + + + + | REFERENCE LAB | [address] | [place], [place] | | | [facility] | Blvd. | [address] | | | LABORATORY | | | | + + + + + ECHO-EXTERNAL SCAN (11/06/2019 12:00 AM PST) + + + | Narrative | Performed At | + + + | Ordered by an | | | unspecified provider. | | + + + External Lab: OPAL (11/01/2019) + [...] | + +---------+ + + External Lab: AST (11/01/2019) + +--------+ + + + | [...] + + + | TSH, | 2.32Comment: GEN | 0.27 - 4.2 | EXTERNAL [...] | | | + +---------+ + + LABS - EXTERNAL SCAN (11/01/2019 12:00 AM PST) + + + | Narrative | Performed At | + + + | Ordered by an | | | unspecified provider. | | + + + Hemoglobin A1C (11/01/2019) + +-------+ + + [...] | | | + +---------+ + + from Last 3 Months Insurance + +--------+ +--------+ +---------+--------+ | Payer | Benefi | Subscriber | Effect | Phone | Address | Type | | | t Plan | ID | trish | | | | | | / | | Dates | | | | | | Group | | | | | | + +--------+ +--------+ +---------+--------+ | [employer] | [employer] | [id number] | 11/12/19 | [phone] | | Medica | | MEDICAID HMO | HEALTH | | 20-Pre | 1 | | id | | | MDCD | | sent | | | | | | [place]MO [place] | | | | | | + +--------+ +--------+ +---------+--------+ | [employer] | [employer] | [id number] | | [phone] | | Medica | | MEDICAID HMO | HEALTH | | 020-Pr | 1 | | id | | | MDCD | | esent | | | | | | [place]MO [place] | | | | | | + +--------+ +--------+ +---------+--------+ + +--------+ +--------+ + + | Guarantor Name | Accoun | Relation to | Date | Phone | Billing Address | | | t Type | Patient | of | | | | | | | | | | + +--------+ +--------+ + + | Levi Clarke | Person | Self [birth year] [address] | | | al/Fam | | 1965 | [phone] | [address] | | | [address] | | | [address] (Home) | [place] [address] | + +--------+ +--------+ + + | Levi Clarke | Person | Self | [birth year] | [address] | | | al/Fam | | 1965 | [phone] | [address] | | | [address] | | | [address] (Home) | [place] [address] | + +--------+ +--------+ + + Advance Directives + + + + + | Type | Date Recorded | Patient | Explanation | | | | Member Of Parliament | | + + + + + | Power of | | | | | Cloth Folder Machine | | | | + + + + + | Advance | | | | | Directive | | | | + + + + +
--- OUTSIDE RECORDS SUMMARY | ~2020-01-13 | XMS | Encounter Summary ---
Demographics + + + | Address | [address] | | | [place] [address] | + + + | Home Phone | | + + + | Preferred Language | Unknown | + + + | Marital Status | Single | + + + | Yarsani Affiliation | 1013 | + + + | Race | Unknown | + + + | Ethnic Group | Unknown | + + + Author + + + | Author | [facility] | | | and [place] | + + + | Organization | [facility] | | | and [...] Team Providers + +------+ + | Care Clip On Sunglasses Assembler Name | Role | Phone | + +------+ + PCP | Unavailable | + +------+ + Encounter Details +--------+ + + + + | Date | Type | Department | Care Team | Description | +--------+ + + + + | 06/12/ | [facility] | [facility] | Parth Gonzales MD | | | 1995 | Encounter | MED CTR GENERIC OP | [address] | | | | | CONV DEPT [address] | [address] [place] | | | | | [address], | [address] | | | | | [place] [address] | | | | | | [phone] | | | +--------+ + + + [...] | | | | | | [place] [address] | | | | | | [phone] | | | | | | | | +--------+---------+ + + + documented as of this encounter Visit Diagnoses Not on filedocumented in this encounter"
--- OUTSIDE RECORDS SUMMARY | ~2020-01-13 | XMS | Clinical Summary ---
Demographics + + + | Address | [address] | | | [place] [address] | + + + | Home Phone | | + + + | Preferred Language | Unknown | + + + | Marital Status | Single | + + + | Moravian Affiliation | 1013 | + + + | Race | Unknown | + + + | Ethnic Group | Unknown | + + + Author + + + | Author | [facility] | | | and [place] | + + + | Organization | [facility] | | | and [...] Team Providers + +------+ + | Care Box Office Attendant Name | Role | Phone | + [...] | | | | | | (FORMERLY [facility]); Psoriasis; | | | | | | [...] | 2019 | Visit | | [address] [facility] | | | | | | [place], | | | | | | [place] [address] | | | | | | [phone] | | | | | | | [...] +--------+ + + + | EXTERNAL LAB: DEBBIE | Routin | 11/01/2019 | | Results [...] +--------+ + + + | EXTERNAL LAB: HANS | Routin | 11/01/2019 | | Results [...] MD | | | | | | ([id number]) on 11/27/2019 | | | | | [...] - 1.030 | REFERENCE | | | [place], | | | LAB | | | [...] | | | Urine | performed at [facility];[address] | | LAB | | | | [place] | | [facility] | | | | [address];[place] [address] | | LABORATORY | | + + [...] + + + | REFERENCE LAB | [address] [place] [address] | [place], [place] | [phone] | | [facility] | Blvd. | [address] | | | LABORATORY | | | | + + + + + | REFERENCE LAB | [address] [place] [address] | [place], [place] | | | [facility] | Blvd. | [address] | | | LABORATORY | | | [...] | | | | | performed at [facility];[address] | | | | | | [facility] | | | | | | Blvd;[place] [address] | | | | | | | | | | + + + + + + + + | Specimen | + + | Blood | + + + + + + + | Performing | Address | City/State/Zipcode | Phone Number | | Organization | | | | + + + + + | REFERENCE LAB | [address] | [place] | [phone] | | [facility] | Blvd. | [address] | | | LABORATORY | | | | + + + + + | REFERENCE LAB | [address] | [place], [place] | | | [facility] | Blvd. | [address] | | | LABORATORY | | | [...] | [employer] | [employer] | [id number] | 11/12/19 | [phone] | | Medica | | MEDICAID HMO | HEALTH | | 20-Pre | 1 | | id | | | MDCD | | sent | | | | | | [place]MO [place] | | | | | | + +--------+ +--------+ +---------+--------+ | [employer] | MOD[employer] | [id number] | | [phone] | | Medica | | MEDICAID HMO [...] | Self | [birth year] | [address] | | | al/Fam | | 1965 | [phone] | [address] | | | [address] | | | [address] (Home) | [place] [address] | + +--------+ +--------+ + + | Levi Clarke | Person | Self | [birth year] | [address] | | | al/Fam | | 1965 | [phone] | [address] | | | [address] | | | [address] (Home) | [place] [address] | + +--------+ +--------+ + + Advance Directives + + + + + | Type | Date Recorded | Patient | Explanation | | | | Surgical Assistant | | + + + + + | Power of | | | | | Anesthesiologist Physician | | | | + + + + + | Advance | | | | | Directive | | | | + + + + +
--- OUTSIDE RECORDS SUMMARY | ~2020-01-13 | XMS | Encounter Summary ---
Demographics + + + | Address | [address] | | | [place] [address] | + + + | Home Phone | | + + + | Preferred Language | Unknown | + + + | Marital Status | Single | + + + | Anabaptism Affiliation | 1013 | + + + | Race | Unknown | + + + | Ethnic Group | Unknown | + + + Author + + + | Author | [facility] | | | and [place] | + + + | Organization | [facility] | | | [...] Team Providers + +------+ + | Care Naval Engineer Name | Role | Phone | + +------+ + PCP | Unavailable | + +------+ + Encounter Details +--------+ + + + + | Date | Type | Department | Care Team | Description | +--------+ + + + + | 01/06/ | [facility] | [facility] | Farrah Galaviz | | | 2011 | Encounter | HOSP[facility] GENERIC OP | [address] | | | | | CONVERSION | [address] | | | | | [address] | [place] [address] | | | | | [place] | [phone] | | | | | [place] | | | | | | [address] | | | | | | [phone] | | | +--------+ + + + [...] | | | | | | [place] [address] | | | | | | [phone] | | | | | | | | +--------+---------+ + + + documented as of this encounter Visit Diagnoses Not on filedocumented in this encounter"
--- OUTSIDE RECORDS SUMMARY | ~2020-01-13 | XMS | Encounter Summary ---
Demographics + + + | Address | [address] | | | [place] [address] | + + + | Home Phone | | + + + | Preferred Language | Unknown | + + + | Marital Status | Single | + + + | Lutheran Affiliation | 1013 | + + + | Race | Unknown | + + + | Ethnic Group | Unknown | + + + Author + + + | Author | [facility] | | | and [place] | + + + | Organization | [facility] | | | [...] Team Providers + +------+ + | Care Historiography Teacher Name | Role | Phone | + +------+ + | Reyna Iyer PA-C | PCP | | + +------+ + Reason for Referral Evaluate & Treat (Routine) + + + + + + + | Status | Reason | Specialty | Diagnoses / | Referred By | Referred To | | | | | Procedures | Contact | Contact | + + + + + + + | Authorized | Specialty | Sleep | Diagnoses | Rishabh | Jocelyn Isabel | | | Services | Medicine | Sleep | MD Blanca | [facility] | | | Required | | apnea, | [address] | | | | | unspecified | [address] | [address] | | | | | type | [place], | [place], | | | | | | [place] [address] | [place] [address] | | | | | | Phone: | Phone: | | | | | | [phone] | [phone] | | | | | | Fax: | Fax: | | | | | | [phone] | [phone] | + + + + + + + Reason for Visit + + + | Reason | Comments | + + + | New Patient | abnormal ECG | + + + Evaluate & Treat (Routine) + +--------+ + + + + | Status | Reason | Specialty | Diagnoses / | Referred By | Referred To | | | | | Procedures | Contact | Contact | + +--------+ + + + + | Authorized | | Cardiology | Diagnoses | [place], | [facility] | | | | | Abnormal | Reyna C, | Cardiology | | | | | electrocardi | PA-C [address] | [address] | | | | | ogram (ECG) | [address] | [place], | | | | | (EKG) | AVE | [place] | | | | | Procedures | [place], | [address] | | | | | [employer] | [place] [address] | Phone: | | | | | | Phone: | [phone] | | | | | | [phone] | Fax: | | | | | | Fax: | [phone] | | | | | | [phone] | | + +--------+ + + + + Encounter Details +--------+---------+ + + + | Date | Type | Department | Care Team | Description | +--------+---------+ + + + | 03/23/ | Office | [facility] | Blanca Kwan, | Abnormal | | 2020 | Visit | CARDIOLOGY [address] | electrocardiogram | | | | [address], | [place], | (Primary Dx); | | | | [place] [address] | [place] [address] | Hypertension, | | | | [phone] | [phone] | essential; Sleep | | | | | | apnea, unspecified | | | | | | type | +--------+---------+ + + + Social History + +-------+ [...] + + documented as of this encounter Last Filed Vital Signs + + + [...] + + + | Oxygen Saturation | - | - | | + [...] | | + + + + + documented in this encounter Patient Instructions Patient Instructions Barbara Connell RN - 11/26/2019 11:00 AM PDT Stop taking lisinopril Start taking Metoprolol XL 25 mg daily. Take one tablet by mouth every day. Please monitor your blood pressure and heart rate twice per day for two weeks and mail in a completed log back to us for review. A referral has been sent to sleep medicine. Someone from that office will contact you to ar range an appointment. Follow up appointment: 6 months Provider: Date: Check-In Time: documented in this encounter Progress Notes Blanca Kwan MD - 11/26/2019 11:00 AM PDTFormatting of this note might be different f rom the original. PATIENT NAME: Levi Clarke : 1965: AGE: 54 y.o. REFERRED BY: Reyna Iyer PA-C PRIMARY CARE: Reyna Iyer PA-C NEW PATIENT OFFICE VISIT Date of Service: 11/26/19 HISTORY OF PRESENT ILLNESS: Levi Clarke is a 54 y.o. male with a history of schizophrenia and essential hypertension. He is being seen today for abnormal ECG. Patient was in his usual state of health until 10/31/2019, he was seen by his primary care kasi flores. At that time, he had an ECG performed that showed mulitple PAC's. He was then sched uled for a Holter monitor and echocardiogram. Today, patient reports occasional non exertional sharp chest pain. Patient is physically in active. Patient denies breathlessness. There is no palpitations. There is no ankle or leg sw elling. Patient can sleep on one pillow at night without difficulty breathing. He does not sleep well and wakes up frequently. CURRENT PROBLEMS Patient Active Problem List Diagnosis Depression with anxiety Hypertension, essential Mixed hyperlipidemia Schizophrenia Psoriasis Abnormal electrocardiogram MEDICAL, SURGICAL, AND PERSONAL HISTORY Past Surgical History: Procedure Laterality Date EYE SURGERY HAND TENDON SURGERY Left 1986 nerve repair SHOULDER SURGERY Family History Problem Relation Age of Onset Hypertension Mother Diabetes Mother Hypertension Father Heart disease Father Cancer Sister throat Hypertension Maternal Grandmother Heart disease Maternal Grandmother Diabetes Maternal Grandmother Alzheimer's disease Maternal Grandfather Diabetes Paternal Grandmother Hypertension Paternal Grandmother Hypertension Sister Family Status Relation Name Status Mother (Not Specified) Father (Not Specified) Sister (Not Specified) MGM (Not Specified) MGF (Not Specified) PGM (Not Specified) Sister (Not Specified) Social History Socioeconomic History Marital status: Single Spouse name: Not on file Number of children: Not on file Years of education: Not on file Highest education level: Not on file Tobacco Use Smoking status: Never Smoker Smokeless tobacco: Never Used Substance and Sexual Activity Alcohol use: Not Currently Drug use: Never CURRENT MEDICATIONS Current Outpatient Medications Medication Sig Dispense Refill lisinopril (PRINIVIL, ZESTRIL) 10 mg tablet Take 10 mg by mouth Daily. paliperidone palmitate (INVEGA SUSTENNA) 156 mg/mL IM syringe Inject 156 mg into the mu scle Every 30 days. risperiDONE (RISPERDAL) 2 MG tablet Take 2 mg by mouth 2 times daily. triamcinolone (KENALOG) 0.1% cream No current facility-administered medications for this visit. ALLERGIES Allergies Allergen Reactions Sulfa Antibiotics Hives Penicillins Rash ROS Review of Systems Constitutional: Positive for malaise/fatigue. Negative for chills, diaphoresis, fever and w eight loss. HENT: Negative for congestion, hearing loss, nosebleeds and tinnitus. Dental Problems = No Eyes: Negative for blurred vision and double vision. Respiratory: Negative for shortness of breath. Cardiovascular: Positive for chest pain. Negative for palpitations and leg swelling. Gastrointestinal: Positive for constipation. Negative for blood in stool, diarrhea, nausea and vomiting. Genitourinary: Negative for dysuria, frequency, hematuria and urgency. Musculoskeletal: Negative for back pain, falls, joint pain, myalgias and neck pain. Gait Problems = No Skin: Negative for itching and rash. Neurological: Negative for dizziness, tingling, tremors, speech change, seizures, loss of c onsciousness and weakness. Lightheaded = No Endo/Heme/Allergies: Does not bruise/bleed easily. Psychiatric/Behavioral: Negative for memory loss. The patient is not nervous/anxious and do es not have insomnia. OBJECTIVE: PHYSICAL EXAM BP 130/82 | Pulse 102 | Resp 22 | Ht 1.753 m (5' 9") | Wt 120.2 kg (264 lb 15.9 oz) | BMI 39.13 kg/m Physical Exam Constitutional: He is oriented to person, place, and time. He appears well-developed and we ll-nourished. No distress. Male individual, no acute distress. HENT: Head: Normocephalic. Mouth/Throat: Mucous membranes are not cyanotic. Eyes: Lids are normal. Neck: Normal carotid pulses, no hepatojugular reflux and no JVD present. Carotid bruit is n ot present. No tracheal deviation present. Cardiovascular: Normal rate, regular rhythm, S1 normal, S2 normal and normal pulses. PMI is not displaced. Exam reveals no gallop, no S3 and no S4. No murmur heard. Pulses: Carotid pulses are 2+ on the right side and 2+ on the left side. Femoral pulses are 2+ on the right side and 2+ on the left side. Dorsalis pedis pulses are 2+ on the right side and 2+ on the left side. Posterior tibial pulses are 2+ on the right side and 2+ on the left side. Pulmonary/Chest: Effort normal and breath sounds normal. No accessory muscle usage. No resp iratory distress. He has no wheezes. He has no rhonchi. He has no rales. Abdominal: Soft. Normal appearance and bowel sounds are normal. He exhibits no abdominal br uit. There is no hepatosplenomegaly. There is no abdominal tenderness. Musculoskeletal: General: No edema. Neurological: He is alert and oriented to person, place, and time. Gait normal. Skin: Skin is warm and dry. He is not diaphoretic. No cyanosis. No pallor. Nails show no cl ubbing. Psychiatric: He has a normal mood and affect. His mood appears not anxious. He does not exh ibit a depressed mood. ECG: Sinus tachycardia with 2nd degree AV block, occasional PVC's. LAB RESULTS: LIPID Lab Results Component Value Date LDLEX 122 (A) 11/01/2019 HDLEX 37 (A) 11/01/2019 TRIGEX 142 11/01/2019 CHOLEX 187 11/01/2019 CHEMISTRY Lab Results Component Value Date GLUEX 120 (A) 11/01/2019 NAEX 141 11/01/2019 KEX 4.7 11/01/2019 CLEX 104 11/01/2019 CO2EX 24 11/01/2019 ASTEX 12 (A) 11/01/2019 ALTEX 16 11/01/2019 EGFREX 69 11/01/2019 CREEX 1.11 11/01/2019 HEMATOLOGY Lab Results Component Value Date WBCEX 9 11/01/2019 HGBEX 14.6 11/01/2019 HCTEX 43.5 11/01/2019 PLTEX 258 11/01/2019 I reviewed records from Reyna Iyer PA-C for office visit on 10/31/2019. Refer to card iologist. ASSESSMENT: 1. Asymptomatic PAC's A. Echocardiogram 11/06/2019 shows normal left ventricular cavity wall with overall normal s ystolic function EF 55%, normal right ventricular size and function, no significant valvular abnormalities, no evidence of any pericardial effusion. Edgardo Phan MD. B. Holter monitor 11/06/2019-11/10/2019 shows a total of 289,818 beats recorded, patient was p redominantly sinus rhythm, average heart rate 101 beats per minute, minimum heart rate of 79 beats per minute and maximum heart rate 126 beats per minute, arrhythmia was noted as frequ ent premature atrial contractions, rare premature ventricular contractions, short paroxysmal episodes of SVT, however the longest was only 22 beats. Edgardo Phan MD C. Patient was in his usual state of health until 10/31/2019, he was seen by his primary ca re provider. At that time, he had an ECG performed that showed mulitple PAC's. He was then s cheduled for a Holter monitor and echocardiogram. Today, patient reports occasional non exertional sharp chest pain. Patient is physically i nactive. There is no signs and symptoms of overt congestive heart failure. He is in a class I of [place] [employer] functional class. There is no fluid retention on physical examination. 2. Essential hypertension A. Today, his blood pressure is within target. 3. Mixed hyperlipidemia A. Lipid panel from 11/01/2019 shows low HDL. 4. Schizophrenia 5. Sleep disorder breathing A. Patient scored 6 out of 8 on stop bang questionnaire. He will be referred for sleep con sultation today. PLAN: 1. I spend time at length talking about natural course, treatment and prognosis of asymptom atic PVC's. 2. Switch lisinopril to metoprolol XL 25 mg once a day to lower blood pressure and treat PA Cs. 3. Check blood pressure and pulse x 2 weeks 4. Refer patient for sleep consultation and sleep study. 5. I recommend a therapeutic lifestyle change including walking 30 minutes a day, choosing healthy choices of diet , including DASH diet, weight reduction and 7 hours of high quality sleep a night. 6. Follow up in 3 to 4 months. I, Syeda Macias, am acting as a scribe on behalf of, and in the presence of Blanca rocha MD. I have reviewed and edited this note. Cesar Barnett Asst 11/26/2019 I, Blanca Kwan MD, personally performed the services described in this documentation, as scribed in my presence and it is both accurate and complete. Syeda Macias Med Ass t 11/26/2019 9:51 AM Electronically signed by: Blanca Kwan MD [facility] 11/26/2019 Portions of this chart may have been created with [employer] voice recognition software. Occasi onal wrong-word or sound-alike substitutions may have occurred due to the inherent vargas itations of voice recognition software. Please read the chart carefully and recognize, using context, where these substitutions have occurred. documented in this encounter Plan of Treatment +--------+---------+ + + + | Date | Type | Specialty | Care Team | Description | +--------+---------+ + + + | 05/29/ | Office | Cardiology | Blanca Kwan, | | 2019 | Visit | | [address] [place] [address] | | | | | | [facility] [place], | | | | | | [place] [address] | | | | | | [phone] | | | | | | | | +--------+---------+ + + + + + +--------+ + + | Name | Type | Priori | Associated Diagnoses | Order Schedule | | | | ty | | | + + +--------+ + + | * [facility] | Outpatient | Routin | Sleep apnea, | Ordered: 11/26/2019 | | Sleep Disorder - AMB | Referral | e | unspecified type | | | Referral | | | | | + + +--------+ + + documented as of this encounter [...] | | + +--------+ + + + documented in this encounter Results ECG 12 lead (11/26/2019 9:47 AM [...] by | | | | | | BLANCA KWAN MD | | | | | | ([id number]) on 11/27/2019 | | | | | [...] + | Diagnosis | + + | Abnormal electrocardiogram - Primary Nonspecific abnormal electrocardiogram (ECG) | | (EKG) | + + | Hypertension, essential Unspecified essential hypertension | + + | Sleep apnea, unspecified type | + + documented in this encounter
--- OUTSIDE RECORDS SUMMARY | ~2020-01-13 | XMS | Encounter Summary ---
Demographics + + + | Address | [address] | | | [place] [address] | + + + | Home Phone | | + + + | Preferred Language | Unknown | + + + | Marital Status | Single | + + + | Voodoo Affiliation | 1013 | + + + | Race | Unknown | + + + | Ethnic Group | Unknown | + + + Author + + + | Author | [facility] | | | and Shaneana | + + + | Organization | [facility] | | | and [...] Team Providers + +------+ + | Care Malware Analyst Name | Role | Phone | + +------+ + | Reyna Iyer PA-C | PCP | | + +------+ + Reason for Visit + + + | Reason | Comments | + + + | Referral | | + + + Encounter Details +--------+ + + + + | Date | Type | Department | Care Team | Description | +--------+ + + + + | 11/12/ | Telephone | [facility] | Luis M Hawk, | Referral | | 2020 | | UROLOGY [address] | DO [address] | | | | | [address] | [place] [address] | | | | | [place], [place] | [phone] | | | | | [address] | | | | | | [phone] | | | +--------+ + + + [...] [place], | | | | | | [place] [address] | | | | | | [phone] | | | | | | | | +--------+---------+ + + + documented as of this encounter Visit Diagnoses Not on filedocumented in this encounter"
--- OUTSIDE RECORDS SUMMARY | ~2020-01-13 | XMS | Encounter Summary ---
Demographics + + + | Address | [address] | | | [place] [address] | + + + | Home Phone | | + + + | Preferred Language | Unknown | + + + | Marital Status | Single | + + + | Temple Affiliation | 1013 | + + + [...] Team Providers + +------+ + | Care Mechanical Car Checker Name | Role | Phone | + [...] + + | 11/12/ | Telephone | [facility] | Luis M Hawk, | Referral | | 2020 | | UROLOGY [address] | DO [address] | | | | | [address] | [place] [address] | | | | | [place], [place] | [phone] | | | | | [address] | | | | | | [phone] | | | +--------+ + + + [...] | | | | | | [place] [address] | | | | | | [phone] | | | | | | | | +--------+---------+ + + + documented as of this encounter Visit Diagnoses Not on filedocumented in this encounter"
--- OUTSIDE RECORDS SUMMARY | ~2020-01-13 | XMS | Encounter Summary ---
Demographics + + + | Address | [address] | | | [place] [address] | + + + | Home Phone | | + + + | Preferred Language | Unknown | + + + | Marital Status | Single | + + + | Synagogue Affiliation | 1013 | + + + | Race | Unknown | + + + | Ethnic Group | Unknown | + + + Author + + + | Author | [facility] | | | and [place]ana | + + + | Organization | [facility] | | | [...] Team Providers + +------+ + | Care Entertainment & Media Correspondent Name | Role | Phone | + [...] + + | 12/11/ | Telephone | [facility] | Payton López, | Other | | 2020 | | UROLOGY [address] | RN | | | | | [address] | | | | | | [place], [place] | | | | | | [address] | | | | | | [phone] | | | +--------+ + + + [...] [place], | | | | | | [place] [address] | | | | | | [phone] | | | | | | | | +--------+---------+ + + + documented as of this encounter Visit Diagnoses Not on filedocumented in this encounter"
--- OUTSIDE RECORDS SUMMARY | ~2020-01-13 | XMS | Encounter Summary ---
Demographics + + + | Address | [address] | | | [place] [address] | + + + | Home Phone | | + + + | Preferred Language | Unknown | + + + | Marital Status | Single | + + + | Orthodoxy Affiliation | 1013 | + + + | Race | Unknown | + + + | Ethnic Group | Unknown | + + + Author + + + | Author | [facility] | | | and [place]ana | + + + | Organization | [facility] | | | and [...] Team Providers + +------+ + | Care Director Financial Systems Name | Role | Phone | + [...] | | [address] | [place] [address] | | | | | [place] [address] | [phone] | | | | | [place] | | | | | | [address] | | | | | | [phone] | | | +--------+ + + + [...] [place], | | | | | | [place] [address] | | | | | | [phone] | | | | | | | | +--------+---------+ + + + documented as of this encounter Visit Diagnoses Not on filedocumented in this encounter"
--- OUTSIDE RECORDS SUMMARY | ~2020-01-13 | XMS | Encounter Summary ---
Demographics + + + | Address | [address] | | | [place] [address] | + + + | Home Phone | | + + + | Preferred Language | Unknown | + + + | Marital Status | Single | + + + | Islam Affiliation | 1013 | + + + | Race | Unknown | + + + | Ethnic Group | Unknown | + + + Author + + + | Author | [facility] | | | and [place] | + + + | Organization | [facility] | | [...] Providers + +------+ + | Care Mechanical Maintenance Engineer Name | Role | Phone | [...] [address] | anxiety; | | | | [place], | [address] | Hypertension, | | | | [place] [address] | [place] [address] | essential; Mixed | | | | [phone] | | hyperlipidemia; | | | | [...] [address] | | | | | | [place], | | | | | | [place] [address] | | | | | | [phone] | | | | | | | [...]
--- OUTSIDE RECORDS SUMMARY | ~2020-01-13 | XMS | Encounter Summary ---
Demographics + + + | Address | [address] | | | [place] [address] | + + + | Home Phone | | + + + | Preferred Language | Unknown | + + + | Marital Status | Single | + + + | Anglican Affiliation | 1013 | + + + | Race | Unknown | + + + | Ethnic Group | Unknown | + + + Author + + + | Author | [facility] | | | and Shaneana | + + + | Organization | [facility] | | | [...] Team Providers + +------+ + | Care Loom Setter Fourdrinier Name | Role | Phone | + +------+ + | Reyna Iyer PA-C | PCP | | + +------+ + Reason for Visit + + + | Reason | Comments | + + + | Elevated PSA | | + + + Evaluate & Treat (Urgent) + +--------+ + + + + | Status | Reason | Specialty | Diagnoses / | Referred By | Referred To | | | | | Procedures | Contact | Contact | + +--------+ + + + + | Authorized | | Urology | Diagnoses | [facility] | | | | | Elevated | Titus | [address] | | | | | prostate | MD Nabeel | [address] | | | | | specific | [address] | [place] | | | | | antigen | [address] | [address] | | | | | (PSA) 16.08 | [place], | Phone: | | | | | | [place] | [phone] | | | | | | [address] | Fax: | | | | | | Phone: | [phone] | | | | | | [phone] | | | | | | | Fax: | | | | | | | [phone] | | + +--------+ + + + + Encounter Details +--------+---------+ + + + | Date | Type | Department | Care Team | Description | +--------+---------+ + + + | 11/15/ | Office | [facility] | Keri Knox | Elevated PSA | | 2019 | Visit | UROLOGY [address] | MD [address] | (Primary Dx); | | | | [address] | [address] | Dysuria | | | | [place], [place] | [place] [address] | | | | | [address] | [phone] | | | | | [phone] | | | +--------+---------+ + + + Social History [...] + + + | Blood Pressure | 140/86 | 11/16/2019 11:08 AM | | | | | PDT | | + + + + + | Pulse | 62 | 11/16/2019 11:08 AM | | | | | PDT | | + + + + + | Temperature | - | - | | + + + + + | Respiratory Rate | - | - | | + + + + + | Oxygen Saturation | 95% | 11/16/2019 11:08 AM | | | | | PDT | | + + + + + | Inhaled Oxygen | - | - | | | Concentration | | | | + + + + + | Weight | 120.9 kg (266 lb 8 | 11/16/2019 11:08 AM | | | | oz) | PDT | | + + + + + | Height | 175.3 cm (5' 9") | 11/16/2019 11:08 AM | | | | | PDT | | + + + + + | Body Mass Index | 39.36 | 11/16/2019 11:08 AM | | | | | PDT | | + + + + + documented in this encounter Patient Instructions Patient Instructions Keri Knox MD - 11/16/2019 11:30 AM PDTFormatting of is note might be different from the original. Repeat PSA value If still elevated plan for prostate biopsy Please schedule for prostate biopsy in the event that PSA remains elevated PLAN PROSTATE BIOPSY APPOINTMENT DATE: 01/04/2020 ARRIVAL TIME: 10:00 AM PROSTATE BIOPSY RESULTS APPOINTMENT DATE: 01/11/2020 ARRIVAL TIME: 11:00AM ARRIVE ONE HOUR PRIOR TO APPOINTMENT #1 PSA - Go to ANY [facility] to have PSA draw Completed PRIOR TO THE PROSTATE Biopsy #2 PSA - Go to ANY [facility] to have PSA draw Completed ( A FEW DAY PRIOR TO THE [place] OSTATE BIOPSY) Go to any [facility] to have your blood drawn. There is a [facility] ties Laboratory in our building on the 1st floor if you prefer. You do not need to take pap erwork with you, the orders are sent electronically. You can visit [email or web address] for locations and hours. #3 Please arrive 1 Hour early as you will be treated with an oral and injectable antibiotic to prevent the possibility of infection. #4 Please have a meal prior to appointment #Take a fleet's enema 2 Hours Prior or the night prior to the procedure .This may be purcha sed over the counter at any pharmacy. #6 Do not empty you bladder before the procedure as this helps visualize the prostate. #7 If you are taking any ANTICOAGULANTS such as Coumadin, Plavix, Eliquis, please consult with your prescribing physician on how to manage these medication prior to the procedure. #8 If you are currently taking Aspirin, Ibuprofen, fish oil, or any medication On the lin ched list please discontinue 1 week Prior to the procedure. #9 If you need to take a pain reliever within the week prior to the procedure, you may doroteo e a Tylenol. # the staff if you have any artificial joints, artificial heart Valves, or a vascular graft . PLEASE DON'T HESITATE TO CALL IF YOU HAVE ANY QUESTIONS OF CONCERNS AT Prostate Biopsy Cancer occurs when abnormal cells form a tumor. A tumor is a lump of cells that grow uncont rolled. Initial tests that may indicate cancer of the prostate include a digital rectal exam , a PSA (prostate specific antigen blood test), ultrasound, and others. A core needle biopsy will be done if your healthcare provider thinks you have prostate cancer. A thin needle is used to remove small samples of prostate tissue. Usually multiple biopsies are taken. These samples are checked for cancer. Taking tissue samples A biopsy takes about 15to 20 minutes. You may be given an enema or suppository before the biopsy to clear the bowels. Antibiotics are given at least an hour before the biopsy. Nadine combs the procedure: You will be given antibiotics to prevent infection. You may be given a sedative, local pain killer, or pain medicine. A small, ultrasound probe is put into the rectum as you lie on your side. A picture of your prostate can then be seen on a monitor. This is called a transrectal ultrasound (TRUS) . Your healthcare provider will use the TRUS picture as a guide. He or she will use a thin needle to remove tiny tissue samples from some sites in the prostate. These tissue samples are sent to the pathology department. They are looked at under a mi croscope so a diagnosis can be made. Risks and complications of core needle biopsy Infection Blood in urine, stool, or semen Pain The biopsy misses the tumor Home care You may have had the biopsy done through your rectum, your urethra, or through the skin bet ween your scrotum and rectum. Your healthcare provider will tell you what to do after the bi opsy. These instructions are based on your health condition, the type of biopsy, and your pr ovider s practices. Your provider may give you pain medicine such as acetaminophen or ibuprofen for discomfo rt or pain. Follow your provider s instructions for taking these medicines. Don t take a spirin or ibuprofen after the procedure.If you have a chronic liver or kidney disease, jewel k with your provider before taking these medicines. Also talk with your provider if you ve had a stomach ulcer or gastrointestinal bleeding. Let your provider know all the medicines you currently take. You may need to take antibiotics for 1 to 2 days. This will help prevent an infection. S igns of an infection include chills, pain, or fever. You may be told to drink 8 ounces of water every 30 minutes for 2 hours. This will help ease any discomfort. You can also take a warm bath or put a warm, damp washcloth over your u rethra to help ease the pain. You may see minor bleeding after the procedure. This is normal and usually needs no debra tment. You may see blood in your urine or semen (rust color). You may also have light bleedi ng from your rectum if you have hemorrhoids. Your provider will tell you when you can go back to your normal activities. This include s sex, exercise, and straining physically. Discuss these with your provider. When to seek medical advice Call your healthcare provider right away if any of these occur: You aren t able to urinate, or see that you have less flow of urine Chills and fever of 100.4F (38C) Severe pain Signs of an infection that is getting worse. These include worsening pain, pain in your side under the rib cage or in the low back, or foul-smelling urine. Blood clots or bright red blood in your stool or urine You feel confused or very tired Date Last Reviewed: 09/05/201619998296-7040 [employer]. [address] [place] [address], [place] [address]. All righ ts reserved. This information is not intended as a substitute for professional medical care. Always follow your healthcare professional's instructions. documented in this encounter Progress Notes Keri Knox MD - 11/16/2019 11:30 AM PDTFormatting of this note might be diff erent from the original. [facility] Primary Care Provider: Reyna Iyer PA-C CHIEF COMPLAINT: Chief Complaint Patient presents with Elevated PSA HISTORY OF PRESENT ILLNESS: The patient is a 54 y.o. male with significant past medical history of HTN, HLD, schizophre william presenting with elevated PSA. 11/02/19 PSA 16.08, 7% free We reviewed the patients LUTS in the office today. Weak Stream: no Straining to urinate: no Urinary Hesitancy: sometimes Urinary intermittency: no Urinary urgency: no Urinary leakage: no Post Void Dribbling: no Nocturia: 3-4X Retention: no Additional Voding History: Gross Hematuria: no Dysuria: yes H/o UTIs: yes reports a few years ago Prior Prostate Surgery: no Family history of CaP: no The patient reports: Chronic Constipation: no AUASS: 9 PVR: 15ml History: No past medical history on file. No past surgical history on file. No family history on file. Social History Tobacco Use Smoking status: Not on file Substance Use Topics Alcohol use: Not on file Drug use: Not on file Allergies: Allergies Allergen Reactions Penicillins Rash Medications: Outpatient Medications Marked as Taking for the 11/16/19 encounter (Office Visit) with Keri Knox MD Medication Sig Dispense Refill lisinopril-hydrochlorothiazide (PRINZIDE,ZESTORETIC) 10-12.5 MG per tablet Take 1 table t by mouth Daily. omeprazole (PRILOSEC) 20 mg capsule Take 20 mg by mouth every morning (before breakfast ). risperiDONE (RISPERDAL) 2 MG tablet Take 2 mg by mouth 2 times daily. triamcinolone (KENALOG) 0.1% cream REVIEW OF SYSTEMS Review of Systems Constitutional: Negative. HENT: Negative. Eyes: Negative. Respiratory: Negative. Cardiovascular: Negative. Gastrointestinal: Negative. Genitourinary: Positive for dysuria. Musculoskeletal: Negative. Skin: Negative. Neurological: Negative. Endo/Heme/Allergies: Negative. Psychiatric/Behavioral: Negative. PHYSICAL EXAM Vital Signs: BP 140/86 | Pulse 62 | Ht 1.753 m (5' 9") | Wt 120.9 kg (266 lb 8 oz) | SpO2 95% | BMI 39.36 kg/m General Exam: General Appearance: alert, awake, oriented, in no apparent distress. HEENT: Head is normocephalic. Pupils are equal and reactive. Neck: Supple without lymphadenopathy. Heart: Regular rate and rhythm. Lungs: Normal respiratory effort. Abdomen: Soft, non-tender, non-distended. No palpable masses Bladder: Non-tender, not distended. Extremities: Without cyanosis, clubbing or edema. Musculoskeletal: No CVA tenderness. Neurological: no focal deficits, grossly intact Skin: Warm and dry without any rash. Male Genitourinary Exam: PREET: 2+ prostate, firm, non-tender, symmetric, no nodules palpable, normal sphincter tone. ASSESSMENT 1. Elevated PSA PSA, Total and Free 2. Dysuria Urinalysis with Microscopic with Culture if Indicated PLAN Patient presenting with mild LUTS, urinary hesitancy and nocturia found to have elevated PS A 16. The patient and I had a long discussion about the recommendations of the USPSTF and AUA sonja delines in detail. At this point, the patient's age and longevity warrant continued prostat e cancer screening. We discussed performing a prostate biopsy and the risks and complications including, but no t limited to, pain (7%), fever (6%), hematuria (6%), hematochezia (2%), and hematospermia (2 7%) and sepsis (1-2%). After long discussion, the patient wishes to proceed with biopsy in the near future in orde r to rule out malignancy of the prostate. -repeat PSA -schedule for prostate biopsy -check UA/cutlure due to dysuria Keri Knox MD documented i n this encounter Plan of Treatment +--------+---------+ + + + | Date | Type | Specialty | Care Team | Description | +--------+---------+ + + + | 05/29/ | Office | Cardiology | Blanca Keating, | | | 2019 | Visit | | MD Jorge Polk | | | | | | [facility] [place], | | | | | | [place] [address] | | | | | | [phone] | | | | | | | [...] + + documented in this encounter Results Urinalysis with Microscopic with Culture if Indicated [...] - 1.030 | REFERENCE | | | [place], | | | LAB | | | [...] | | | Urine | performed at [facility];[address] | | LAB | | | | [place] | | [facility] | | | | [address];[place] [address] | | LABORATORY | | + + [...] + + + | REFERENCE LAB | [address] [place] [address] | [place], [place] | [phone] | | [facility] | [address] | [address] | | | LABORATORY | | | | + + + + + | REFERENCE LAB | [address] [place] [address] | [place], [place] | | | [facility] | [address] | [address] | | | LABORATORY | | | [...] | | | | | performed at [facility];[address] | | | | | | [facility] | | | | | | Blvd;[place] [address] | | | | | | | | | | + + + + + + + + | Specimen | + + | Blood | + + + + + + + | Performing | Address | City/State/Zipcode | Phone Number | | Organization | | | | + + + + + | REFERENCE LAB | [address] | [place] | [phone] | | [facility] [address] | [address] | | | LABORATORY | | | | + + + + + | REFERENCE LAB | [facility] [address] | [place] | | | [facility] | [address] | [address] | | | LABORATORY | | | | + + + + + documented in this encounter Visit Diagnoses + + | Diagnosis | + + | Elevated PSA - Primary Elevated prostate specific antigen (PSA) | + + | Dysuria | + + documented in this encounter
--- OUTSIDE RECORDS SUMMARY | ~2020-01-13 | XMS | Encounter Summary ---
Demographics + + + | Address | [address] | | | [place] [address] | + + + | Home Phone | | + + + | Preferred Language | Unknown | + + + | Marital Status | Single | + + + | Congregational Affiliation | 1013 | + + + | Race | Unknown | + + + | Ethnic Group | Unknown | + + + Author + + + | Author | [facility] | | | and Shaneana | + + + | Organization | [facility] | | [...] Team Providers + +------+ + | Care Drafter Civil Engineering Name | Role | Phone | + [...] | | [address] | [place] [address] | | | | | [address] | [phone] | | | | | [phone] | | | +--------+ + + + [...] 2020 | Visit | | [address] | | | | | | [place], | | | | | | [place] [address] | | | | | | [phone] | | | | | | | | +--------+---------+ + + + documented as of this encounter Visit Diagnoses Not on filedocumented in this encounter"
--- OUTSIDE RECORDS SUMMARY | ~2020-01-13 | XMS | Encounter Summary ---
Demographics + + + | Address | [address] | | | [place] [address] | + + + | Home Phone | | + + + | Preferred Language | Unknown | + + + | Marital Status | Single | + + + | Samaritan Affiliation | 1013 | + + + | Race | Unknown | + + + | Ethnic Group | Unknown | + + + Author + + + | Author | [facility] | | | and Shaneana | + + + | Organization | [facility] | | | [...] Team Providers + +------+ + | Care Fire Observer Name | Role | Phone | + [...] | | Urology | Diagnoses | [facility] | | | | | Elevated | Titus | [address] | | | | | prostate | MD Nabeel | [address] | | | | | specific | [address] | [place] | | | | | antigen | [address] | [address] | | | | | (PSA) 16.08 | [place], | Phone: | | | | | | [place] | [phone] | | | | | | [address] | Fax: | | | | | | Phone: | [phone] | | | | | | [phone] | | | | | | | Fax: | | | | | | | [phone] | | + +--------+ + + + + Encounter Details +--------+---------+ + + + | Date | Type | Department | Care Team | Description | +--------+---------+ + + + | 11/15/ | Office | [facility] | Keri Knox | Elevated PSA | | 2019 | Visit | UROLOGY [address] | [address] | (Primary Dx); | | | | [address] | [address] | Dysuria | | | | [place], [place] | [place] [address] | | | | | [address] | [phone] | | | | | [phone] | | | +--------+---------+ + + + [...] APPOINTMENT #1 PSA - Go to ANY [facility] to have PSA draw Completed PRIOR TO THE PROSTATE Biopsy #2 PSA - Go to ANY [facility] to have PSA draw Completed ( A FEW DAY PRIOR TO THE [place] OSTATE BIOPSY) Go to any [facility] Laboratory to have your blood drawn. There is a [facility] ties Laboratory in our building on the 1st floor if you prefer. You do not need to take pap erwork with you, the orders are sent electronically. You can visit [email or web address] for locations and hours. #3 Please arrive [...] confused or very tired Date Last Reviewed: 09/05/201619997360-6026 [employer]. [address] [place] [address], [place] [address]. All righ ts reserved. This information is not intended as a substitute for professional medical care. Always follow your healthcare professional's instructions. documented in this encounter Progress Notes Keri Knox MD - 11/16/2019 11:30 AM PDTFormatting of this note might be diff erent from the original. [facility] Primary Care Provider: Reyna Iyer PA-C [...] [place], | | | | | | [place] [address] | | | | | | [phone] | | | | | | | [...] - 1.030 | REFERENCE | | | [place], | | | LAB | | | [...] | | | Urine | performed at [facility];[address] | | LAB | | | | [place] | | [facility] | | | | [address];[place] [address] | | LABORATORY | | + + [...] + + + | REFERENCE LAB | [address] [place] [address] | [place], [place] | [phone] | | [facility] | Blvd[address] | [address] | | | LABORATORY | | | | + + + + + | REFERENCE LAB | [address] [place] [address] | [place], [place] | | | [facility] | Blvd[address] | [address] | | | LABORATORY | | | [...] | | | | | performed at [facility];[address] | | | | | | [facility] | | | | | | Blvd;[place] [address] | | | | | | | [...] [address] | [place] | [phone] | | [facility] | [address] | [address] | | | LABORATORY | | | | + + + + + | REFERENCE LAB | [facility] [address] | [place] | | | [facility] | [address] | [address] | | | LABORATORY | | | | + + + + + documented in this encounter Visit Diagnoses + + | Diagnosis | + + | Elevated PSA - Primary Elevated prostate specific antigen (PSA) | + + | Dysuria | + + documented in this encounter
--- OUTSIDE RECORDS SUMMARY | ~2020-01-13 | XMS | Encounter Summary ---
Demographics + + + | Address | [address] | | | [place] [address] | + + + | Home Phone | | + + + | Preferred Language | Unknown | + + + | Marital Status | Single | + + + | Yazidism Affiliation | 1013 | + + + | Race | Unknown | + + + | Ethnic Group | Unknown | + + + Author + + + | Author | [facility] | | | and Shaneana | + + + | Organization | [facility] | | | [...] Team Providers + +------+ + | Care Echometer Engineer Name | Role | Phone | [...] | | | | | unspecified | [address] | [address] | | | | | type | [place], | [place], | | | | | | [place] [address] | [place] [address] | | | | | | Phone: | Phone: | | | | | | [phone] | [phone] | | | | | | Fax: | Fax: | | | | | | [phone] | [phone] | + + + + + + [...] electrocardi | PA-C [address] | | | | | ogram (ECG) | [address] | [place], | | | | | (EKG) | AVE | [place] | | | | | Procedures | [place], | [address] | | | | | [place] | [place] [address] | Phone: | | | | | | Phone: | [phone] | | | | | | [phone] | Fax: | | | | | | Fax: | [phone] | | | | | | [phone] | | + +--------+ + + + + Encounter Details +--------+---------+ + + + | Date | Type | Department | Care Team | Description | +--------+---------+ + + + | 03/23/ | Office | [facility] | Blanca Kwan, | Abnormal | | 2020 | Visit | CARDIOLOGY [address] | electrocardiogram | | | | [place], | [place], | (Primary Dx); | | | | [place] [address] | [place] [address] | Hypertension, | | | | [phone] | [phone] | essential; Sleep | | | | [...] He is in a class I of [place] [employer] functional class. There is no [...] AM Electronically signed by: Blanca Kwan MD [facility] 11/26/2019 Portions of this chart may have been created with [employer] voice recognition software. Occasi onal wrong-word or [...] | | 2019 | Visit | | [address] [place] [address] | | | | | | [facility] [place], | | | | | | [place] [address] | | | | | | [phone] | | | | | | | [...] MD | | | | | | ([id number]) on 11/27/2019 | | | | | [...]
--- OUTSIDE RECORDS SUMMARY | 2020-01-13 18:08 | XMS ---
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 Care History Medical/Surgical 09/27/2019 [facility] - CHW CONTACTED PATIENT- PATIENT REQUESTED INFORMATION FOR APT TO BE TEXTED TO HIS CELLPHONE. - CHW TEXT [phone] WITH APT TIME AND LOCATION AND TRANSPORTATION NUMBER. 09/26/2019 [facility] - CHW CONTACTED PATIENT- DISCUSSED THE NEED FOR ESTABLISHING CARE WITH A PCP. - PATIENT APPROVED FOR CHW TO CONTACT [facility] TO SET UP AN APT- CHW CONTACTED CLINIC AND SET UP A PCP APT FOR Tuesday10/01/2019 @ 12: 45. - CHW PROVIDED PATIENT WITH TRANSPORTATION NUMBER WITH MEDICAID- PATIENT STATED HE WOULD CALL IF TRANSPORTATION SERVICES WAS NEEDED. 09/25/2019 [facility] - CHW CALLED AND LEFT PATIENT A VOICEMAIL AGAIN- WITH CONTACT FOR RETURN CALL. E.D. VISIT COUNT (12 MO.) 1 [facility] [place] - [place] 6 WE[facility] Barboza TOTAL 7 NOTE: Visits indicate total known visits. 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 09/26/2019 23:14 [facility] [place] TYPE: Emergency COMPLAINT: - KIDNEY PAIN DIAGNOSES: - Allergy status to sulfonamides status - Allergy status to penicillin - Other terminal carman (current) drug therapy - Essential (primary) hypertension - Unspecified abdominal pain 09/25/2019 16:57 [facility] [place] TYPE: Emergency COMPLAINT: - SLEEPLESSNESS DIAGNOSES: - Allergy status to sulfonamides status - Other psychoactive substance use, unspecified with psychoacti - Essential (primary) hypertension - Other psychoactive substance use, unspecified with psychoacti - Allergy status to penicillin - Other terminal carman (current) drug therapy 09/24/2019 17:16 [facility] [place] TYPE: Emergency COMPLAINT: - SORE THROAT DIAGNOSES: - Allergy status to sulfonamides status - Cough - Viral infection, unspecified - Essential (primary) hypertension - Allergy status to penicillin 09/21/2019 07:[address] [facility] [address] [facility] [place] TYPE: Emergency COMPLAINT: - WEAKNESS DIAGNOSES: - Allergy status to sulfonamides status - Allergy status to penicillin - Delusional disorders - Essential (primary) hypertension - Weakness 01/22/2019 09:46 [facility] [place] TYPE: Emergency DIAGNOSES: - Med Refill - Essential (primary) hypertension - BP INPATIENT VISIT TRACKING (12 MO.) No inpatient visits to display in this time frame [id number]
[2020-01-13] MEDS ORDERED: METOPROLOL SUCC25 MG PO (18:31)
== END 2020-01-13 19:50 | disposition home or self-care (01) ==
LOC: ED 18:06
DX: S50.851A Superficial foreign body of right forearm, initial encounter (principal); I10 Essential (primary) hypertension; Z88.0 Allergy status to penicillin; Z88.2 Allergy status to sulfonamides; Z79.899 Other long term (current) drug therapy; W45.8XXA Other foreign body or object entering through skin, initial encounter
CPT/HCPCS: 10120; 73070; 73080; 90471; 90715; 99283-25